=== PATIENT | female | born 1985 | race Caucasian/White ===

== ENCOUNTER 2016-11-12 16:40 | Inpatient (IN) | payer BC ==
[2016-11-12] MEDS ORDERED: diPHENhydraMINE IV* 50 MG/ML 1 ml VIAL (BENADRYL) ONE (16:55)
[2016-11-12] MEDS ORDERED: Haloperidol INJ IV/IM* 5 MG/ML AMP ONE (16:55)
[2016-11-12] MEDS ORDERED: LORazepam INJ* 2 MG/ML 1 ML VIAL ONE (16:55)
[2016-11-12] MEDS ORDERED: diPHENhydraMINE IV* 50 MG/ML 1 ml VIAL (BENADRYL) IM ONE (17:01)
[2016-11-12] MEDS ORDERED: LORazepam INJ* 2 MG/ML 1 ML VIAL IM ONE (17:01)
[2016-11-12] MEDS ORDERED: Haloperidol INJ IV/IM* 5 MG/ML AMP IM ONE (17:01)
[2016-11-12 18:52] LABS: Hematocrit 41 % (35-47); Hemoglobin 13.8 g/dl (12.0-16.0); Mean Corpuscular HGB Conc 34 g/dl (31-36); Mean Corpuscular Hemoglobin 31 pg (27-31); Mean Corpuscular Volume 92 fL (80-97); Mean Platelet Volume 8 um3 (7.4-10.4); Red Blood Count 4.48 10^6/ul (4.0-5.4); Red Cell Distribution Width 13 % (10.5-15); White Blood Count 9.6 10^3/ul (3.5-10.8)
[2016-11-12 19:14] LABS: ALT 12 U/L (7-52); AST 21 U/L (13-39); Albumin 4.2 g/dL (3.2-5.2); Alkaline Phosphatase 52 U/L (34-104); Anion Gap 6 mmol/L (2-11); BUN/Creatinine Ratio 17.7 (8-20); Blood Urea Nitrogen 11 mg/dL (6-24); CO2 Carbon Dioxide 27 mmol/L (22-32); Calcium 8.9 mg/dL (8.6-10.3); Chloride 104 mmol/L (101-111); EGFR African American 142.6 (>60); EGFR Non-African American 110.9 (>60); Globulin 2.5 g/dL (2-4); Glucose 81 mg/dL (70-100); Potassium 3.6 mmol/L (3.5-5.0); Sodium 137 mmol/L (133-145); Total Protein 6.7 g/dL (6.4-8.9)
[2016-11-12 19:24] LABS: Acetaminophen < 15 mcg/mL; Alcohol < 10 mg/dL (<10); Salicylate < 2.50 mg/dL (<30)
[2016-11-12 19:34] LABS: TSH (Thyroid Stimulating Horm) 5.83 mcIU/mL (0.34-5.60)
[2016-11-13] MEDS ORDERED: OLANzapine TAB* 5 MG PO ONE (03:45)
[2016-11-13] MEDS ORDERED: Al Hydrox/Mg Hydrox/Simet LIQ* 30 ML UDC PO PRN (04:23)
[2016-11-13] MEDS ORDERED: Acetaminophen TAB* 325 MG PO PRN (04:23)
[2016-11-13] MEDS: Vitamin THERAPEUTIC TAB PO SCH (10:00)
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
[2016-11-14] MEDS: Vitamin THERAPEUTIC TAB PO SCH (16:48)
--- NOTE | 2016-11-14 21:12 | PN ---
Subjective - Subjective Service Type: 82840 Hosp care 15 min low complexity Subjective: Patient noted to be withdrawn, staying primarily in her room this weekend. Patient is full in affect and pleasant on interview. Patient has not been noted to have behavioral issues. She denies SI/HI and AH/VH. Patient reports sleep as poor, reporting poor sleep maintenance. She is amenable to Trazodone 50mg po qhs for insomnia. Objective - Appearance Appearance: Well Developed/Nourished Dysmorphic Features: No Hygiene: Normal Grooming: Fairly Well Kept - Behavior Psychomotor Activities: Normal Exhibits Abnormal Movement: No - Attitude and Relatedness Attitude and Relatedness: Cooperative Eye Contact: Fair - Speech Quality: Unpressured Latencies: Normal Quantity: Terse - Mood Patient's Decription of Mood: "Okay" - Affect Observed Affect: Depressed Affect Consistent with: Dysphoria - Thought Process Patient's Thought Process: Coherent Thought Content: No Passive Wish, No Suicidal Planning, No Homicidal Ideation, No Paranoid Ideation - Sensorium Experiencing Hallucinations: No, Sensorium is Clear Type of Hallucinations: Visual: No, Auditory: No, Command: No - Level of Consciousness Level of Consciousness: Alert Orientation: Yes Intact, Yes Orientated to Time, Yes Orientated to Place, Yes Orientated to Person - Impulse Control Impulse Control: Poor - Insight and Judgement Insight and Judgement: Poor - Group Participation Particating in Group Activities: Yes - Medication Management Medication Management Adherence: Yes Assessment - Assessment Merits Inpatient Hospitalization: For Immediate Safety, For Stabilization Inpatient DSM-IV Dx: 1. Alcohol induced depressive d/o. 2. r/o Bipolar d/o. 3. Alcohol use d/o, severe. 4. Cannabis use d/o, severe Plan - Plan Treatment Plan: Name: VLAD ZAPIEN Birthdate: 1985 [id number] 1. Patient gives informed consent to start Trazodone 50mg po qhs for insomnia. 2. Patient informed she will meet her assigned psychiatrist tomorrow. Medications: Current Medications Acetaminophen (Tylenol Tab*) 650 mg PO Q4H PRN PRN Reason: PAIN or TEMP > 101 F Al Hydrox/Mg Hydrox/Simethicone (Maalox Plus*) 30 ml PO Q4H PRN PRN Reason: INDIGESTION Multivitamins (Theragran Tab*) 1 tab PO DAILY [facility] Last Admin: 11/14/16 16:48 Dose: Not Given - Discharge Plan Discharge Plan: Outpatient Follow Up
[2016-11-14] MEDS: traZODone TAB* 50 MG TAB PO SCH (22:55)
[2016-11-15] MEDS: Vitamin THERAPEUTIC TAB PO SCH (09:39)
--- NOTE | 2016-11-15 16:14 | PN ---
Subjective - Subjective Service Type: 19328 Hosp care 15 min low complexity Subjective: Patient is dysphoric and in behavioral control. She reports that events leading to admission were likely due to "being on a regalado" [alcohol binge] for the week prior. She states she is contemplating refraining from alcohol use and "experimenting with my natural state." She states that she has been losing weight due to access to food and does not like being underweight. She states she lost approx 30# since April due to cutting corners financially and not paying for food. She expresses anger towards her mother and brother for admission to hospital and would have preferred that they help her. She reports her sisters and father are supportive and she plans to ask him to help her in her current financial situation. 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 She denies SI and states "I don't believe in suicide" due to her yazidi mandaeism. Objective - Appearance Appearance: Thin Framed Dysmorphic Features: Yes Hygiene: Normal Grooming: Well Kept - Behavior Psychomotor Activities: Normal Exhibits Abnormal Movement: No - Attitude and Relatedness Attitude and Relatedness: Cooperative Eye Contact: Good - Speech Quality: Unpressured Latencies: Normal Quantity: Appropriate - Mood Patient's Decription of Mood: "Okay" - Affect Observed Affect: Non-labile Affect Consistent with: Dysphoria - Thought Process Patient's Thought Process: Coherent, Goal Directed Thought Content: No Passive Wish, No Suicidal Planning, No Homicidal Ideation, No Paranoid Ideation - Sensorium Experiencing Hallucinations: No, Sensorium is Clear Type of Hallucinations: Visual: No, Auditory: No, Command: No - Level of Consciousness Level of Consciousness: Alert Orientation: Yes Intact, Yes Orientated to Time, Yes Orientated to Place, Yes Orientated to Person - Impulse Control Impulse Control: Tenuous - Insight and Judgement Insight and Judgement: Fair - Group Participation Particating in Group Activities: Yes - Medication Management Medication Management Adherence: Yes Assessment - Assessment Merits Inpatient Hospitalization: For Immediate Safety, For Stabilization, For Discharge Planning Inpatient DSM-IV Dx: 1. Alcohol induced depressive d/o. 2. r/o Bipolar d/o. 3. Alcohol use d/o, severe. 4. Cannabis use d/o, severe Clinical Impression: Vlad is a 31yo female with current outpatient therapist. She reports recent psychosocial stressors and increase in alcohol and marijuana use. 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 Plan - Plan Treatment Plan: Name: VLAD ZAPIEN Birthdate: 1985 [id number] Medications: Current Medications Acetaminophen (Tylenol Tab*) 650 mg PO Q4H PRN PRN Reason: PAIN or TEMP > 101 F Al Hydrox/Mg Hydrox/Simethicone (Maalox Plus*) 30 ml PO Q4H PRN PRN Reason: INDIGESTION Multivitamins (Theragran Tab*) 1 tab PO DAILY [facility] Last Admin: 11/15/16 09:39 Dose: Not Given Trazodone HCl (Desyrel Tab*) 50 mg PO BEDTIME [facility] Last Admin: 11/14/16 22:55 Dose: 50 mg - Discharge Plan Discharge Plan: Outpatient Follow Up Outpatient Program: [facility]
[2016-11-15] MEDS: traZODone TAB* 50 MG TAB PO SCH (20:02)
[2016-11-16 08:53] LABS: Urine Bilirubin Negative (Negative); Urine Glucose Negative (Negative); Urine Nitrite Negative (Negative)
[2016-11-16 09:11] LABS: Benzodiazepine Urine Screen None Detected (None Detect)
[2016-11-16] MEDS: Vitamin THERAPEUTIC TAB PO SCH (09:31)
[2016-11-16] MEDS: Gabapentin CAP(*) 300 MG PO PRN ×2 (14:05→17:29)
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
[2016-11-16] MEDS: QUEtiapine TAB* 25 MG PO SCH (21:38)
[2016-11-17] MEDS: Vitamin THERAPEUTIC TAB PO SCH (09:26)
[2016-11-17] MEDS: Gabapentin CAP(*) 300 MG PO PRN ×2 (09:27→18:53)
--- NOTE | 2016-11-17 15:15 | PN ---
Subjective - Subjective Service Type: [id number] Hosp care 15 min low complexity Subjective: Patient reports "I feel a lot better" and attributes this to writing an email to her family. She states she was angry and expressed herself to her siblings, her father and his . She continues to assert that her family members have not been an active part of her life in the past year and that they do not know her very well. She continues to assert that her actions last week were due to an alcohol binge. She states she was intentional in most of her actions due to anger towards her family members. She states she has had the "best year of my life" and has been on a "long intentional journey." She states she has been trying to better herself through spirituality and yoga. She states "I stand behind my anger." She often refers to herself as a "brown supremacist" and that she is angry at the world. She denies and considers herself a non- violent protester. Patient denies untoward effects with quetiapine. She reports desired effect from gabapentin and appreciated not having a drowsy side effect. She agrees to have a family meeting to plan for discharge. She wants available family members to be present. Objective - Appearance Appearance: Thin Framed Dysmorphic Features: No Hygiene: Normal Grooming: Well Kept - Behavior Psychomotor Activities: Normal Exhibits Abnormal Movement: No - Attitude and Relatedness Attitude and Relatedness: Cooperative Eye Contact: Good - Speech Quality: Pressured Latencies: Normal Quantity: Copious - Mood Patient's Decription of Mood: "Angry" - Affect Observed Affect: Expansive Affect Consistent with: Euphoria - Thought Process Patient's Thought Process: Coherent, Circumstantial, Over Inclusive Thought Content: No Passive Wish, No Suicidal Planning, No Homicidal Ideation, No Paranoid Ideation - Sensorium Experiencing Hallucinations: No, Sensorium is Clear Type of Hallucinations: Visual: No, Auditory: No, Command: No - Level of Consciousness Level of Consciousness: Alert Orientation: Yes Intact, Yes Orientated to Time, Yes Orientated to Place, Yes Orientated to Person - Insight and Judgement Insight and Judgement: Fair - Group Participation Particating in Group Activities: Yes - Medication Management Medication Management Adherence: Yes Assessment - Assessment Merits Inpatient Hospitalization: For Immediate Safety, For Stabilization, Pending Safe DC Plan Inpatient DSM-IV Dx: 1. Alcohol induced depressive d/o. 2. r/o Bipolar d/o. 3. Alcohol use d/o, severe. 4. Cannabis use d/o, severe Clinical Impression: Vlad is a 31yo female with current outpatient therapist. She reports recent psychosocial stressors and increase in alcohol and marijuana use. 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 Collateral information from family members includes that she has been increasingly impulsive and exhibiting manic behaviors since the winter holidays. She merits hospitalization for immediate safety and ongoing diagnostic clarification. She submitted a request for court hearing when she was not deemed safe for discharge. She presents as calm initially then is hyperverbal and tense. She is easily agitated during conversation about family dynamics. Plan - Plan Treatment Plan: Name: VLAD ZAPIEN Birthdate: 1985 [id number] Continue trial quetiapine for mood stabilization and gabapentin prn for anxiety. Continue q30min checks and discontinue staff pass due to court request and risk for elopement. Use of computer on hold. Continued Medication Management: Different Medication Medications: Current Medications Acetaminophen (Tylenol Tab*) 650 mg PO Q4H PRN PRN Reason: PAIN or TEMP > 101 F Al Hydrox/Mg Hydrox/Simethicone (Maalox Plus*) 30 ml PO Q4H PRN PRN Reason: INDIGESTION Gabapentin (Neurontin Cap(*)) 300 mg PO BID PRN PRN Reason: AGITATION/ANXIETY Last Admin: 11/17/16 09:27 Dose: 300 mg Multivitamins (Theragran Tab*) 1 tab PO DAILY [facility] Last Admin: 11/17/16 09:26 Dose: 1 tab Quetiapine Fumarate (Seroquel Tab*) 50 mg PO BEDTIME [facility] Last Admin: 11/16/16 21:38 Dose: 50 mg - Discharge Plan Discharge Plan: Outpatient Follow Up Outpatient Program: [facility]
[2016-11-17] MEDS: QUEtiapine TAB* 25 MG PO SCH (21:35)
[2016-11-18] MEDS: Vitamin THERAPEUTIC TAB PO SCH (09:12)
[2016-11-18] MEDS: Gabapentin CAP(*) 300 MG PO PRN ×3 (10:37→18:25)
[2016-11-18] MEDS ORDERED: Gabapentin CAP(*) 300 MG PO SCH (14:00)
--- NOTE | 2016-11-18 14:44 | PN ---
Subjective - Subjective Service Type: 83311 Hosp care 25 min moderate complexity Subjective: Patient presents as dysphoric with restricted affect. She states she did not take quetiapine last evening as she was already in bed. She states she has decided to remain in the hospital because "my life is over." Patient states she doesn't want to discuss anything further because "anything I've shared is backfiring on me." She states she wants to now "be a part of the system" and be discharged to a homeless care home. During family meeting, patient is hyperverbal, agitated and verbally abusive to family members. She demonstrates poor insight into behaviors in the past year. Objective - Appearance Appearance: Thin Framed Dysmorphic Features: Yes Hygiene: Normal Grooming: Fairly Well Kept - Behavior Psychomotor Activities: Normal Exhibits Abnormal Movement: No - Attitude and Relatedness Attitude and Relatedness: Irritable Eye Contact: Fair - Speech Quality: Pressured Latencies: Normal Quantity: Copious - Mood Patient's Decription of Mood: "Angry" - Affect Observed Affect: Labile Affect Consistent with: Dysphoria - Thought Process Patient's Thought Process: Circumstantial Thought Content: No Passive Wish, No Suicidal Planning, No Homicidal Ideation, No Paranoid Ideation - Sensorium Experiencing Hallucinations: No, Sensorium is Clear Type of Hallucinations: Visual: No, Auditory: No, Command: No - Level of Consciousness Level of Consciousness: Alert Orientation: Yes Intact, Yes Orientated to Time, Yes Orientated to Place, Yes Orientated to Person - Impulse Control Impulse Control: Poor - Insight and Judgement Insight and Judgement: Poor - Group Participation Particating in Group Activities: No - Medication Management Medication Management Adherence: No Assessment - Assessment Merits Inpatient Hospitalization: For Immediate Safety, For Stabilization, For Ongoing Evaluation Inpatient DSM-IV Dx: 1. Alcohol induced depressive d/o. 2. unspecified Bipolar d/o. 3. Alcohol use d/o, severe. 4. Cannabis use d/o, severe Clinical Impression: Vlad is a 31yo female with current outpatient therapist. She reports recent psychosocial stressors and increase in alcohol and marijuana use. 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 Collateral information from family members includes that she has been increasingly impulsive and exhibiting manic behaviors since the winter holidays. She merits hospitalization for immediate safety and ongoing diagnostic clarification. She submitted a request for court hearing when she was not deemed safe for discharge. Family meeting today corroborated decrease in functioning and uncharacteristic behaviors. Patient presented as manic. Plan - Plan Treatment Plan: Name: VLAD ZAPIEN Birthdate: 1985 [id number] Start titration of lamotrigine for mood stabilization. Continue trial quetiapine for mood stabilization and gabapentin prn for anxiety. Continue q30min checks and discontinue staff pass due to court request and risk for elopement. Use of computer on hold. Continued Medication Management: Different Medication Medications: Current Medications Acetaminophen (Tylenol Tab*) 650 mg PO Q4H PRN PRN Reason: PAIN or TEMP > 101 F Al Hydrox/Mg Hydrox/Simethicone (Maalox Plus*) 30 ml PO Q4H PRN PRN Reason: INDIGESTION Gabapentin (Neurontin Cap(*)) 300 mg PO TID PRN PRN Reason: AGITATION/ANXIETY Multivitamins (Theragran Tab*) 1 tab PO DAILY [facility] Last Admin: 11/18/16 09:12 Dose: Not Given Quetiapine Fumarate (Seroquel Tab*) 50 mg PO BEDTIME [facility] Last Admin: 11/17/16 21:35 Dose: Not Given - Discharge Plan Discharge Plan: Outpatient Follow Up Outpatient Program: [facility]
--- NOTE | 2016-11-18 15:55 | PN ---
MHU: Group Therapy Note - Service Type Service Type: [id number] Group Psychotherapy - Group Participation Patient Participating in Group: No
[2016-11-18] MEDS: lamoTRIgine TAB(*) 25 MG PO SCH (21:50)
[2016-11-18] MEDS: QUEtiapine TAB* 25 MG PO SCH (21:50)
[2016-11-19] MEDS: Gabapentin CAP(*) 300 MG PO PRN ×2 (09:42→20:14)
[2016-11-19] MEDS: Vitamin THERAPEUTIC TAB PO SCH (09:42)
--- NOTE | 2016-11-19 12:27 | PN ---
Subjective - Subjective Service Type: [id number] Hosp care 15 min low complexity Subjective: Patient is calm and euthymic. She states she is planning to rescind her court request and stay in the hospital. States she wants to "let you guys diagnose me " without medications or family involvement. Patient reports her presentation since admission is due to anger towards her family members for admission to the hospital. She states she would like to utilize hospitalization to "have a retreat" and assistance with healthcare social worker in regards to housing and employment. [employer] notified her that her family brought her car to the parking lot and her keys, cell phone and belongings are in the unit safe. Objective - Appearance Appearance: Thin Framed Dysmorphic Features: No Hygiene: Normal Grooming: Well Kept - Behavior Psychomotor Activities: Normal Exhibits Abnormal Movement: No - Attitude and Relatedness Attitude and Relatedness: Cooperative Eye Contact: Good - Speech Quality: Unpressured Latencies: Normal Quantity: Appropriate - Mood Patient's Decription of Mood: "Good" - Affect Observed Affect: Good Affect Consistent with: Euthymia - Thought Process Patient's Thought Process: Coherent, Incoherent Thought Content: No Passive Wish, No Suicidal Planning, No Homicidal Ideation, No Paranoid Ideation - Sensorium Experiencing Hallucinations: No, Sensorium is Clear Type of Hallucinations: Visual: No, Auditory: No, Command: No - Level of Consciousness Level of Consciousness: Alert Orientation: Yes Intact, Yes Orientated to Time, Yes Orientated to Place, Yes Orientated to Person - Impulse Control Impulse Control: Intact - Insight and Judgement Insight and Judgement: Fair - Group Participation Particating in Group Activities: Yes - Medication Management Medication Management Adherence: Partial - refuses seroquel and lamotrigine Assessment - Assessment Merits Inpatient Hospitalization: For Immediate Safety, For Stabilization, Diagnosis Determination, Pending Safe DC Plan Inpatient DSM-IV Dx: 1. Alcohol induced depressive d/o. 2. unspecified Bipolar d/o. 3. Alcohol use d/o, severe. 4. Cannabis use d/o, severe Clinical Impression: Rosario is a 31yo female with current outpatient therapist. She reports recent psychosocial stressors and increase in alcohol and marijuana use. 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 Collateral information from family members includes that she has been increasingly impulsive and exhibiting manic behaviors since the winter hols. She merits hospitalization for immediate safety and ongoing diagnostic clarification. She submitted a request for court hearing when she was not deemed safe for discharge. Patient rescinded request for court hearing and [place]EL for her sister, Lesli. She states agreement to continue with diagnostic clarification and would like to do so without medications or family involvement. Plan - Plan Treatment Plan: Name: ROSARIO ZAPIEN Birthdate: 1985 [id number] Start titration of lamotrigine for mood stabilization. Continue trial quetiapine for mood stabilization and gabapentin prn for anxiety. Continue q30min checks. Reinstate staff pass due to rescinding court request and reinstate computer and comfort room use. Monitor for mood and thought content. Continued Medication Management: Different Medication Medications: Current Medications Acetaminophen (Tylenol Tab*) 650 mg PO Q4H PRN PRN Reason: PAIN or TEMP > 101 F Al Hydrox/Mg Hydrox/Simethicone (Maalox Plus*) 30 ml PO Q4H PRN PRN Reason: INDIGESTION Gabapentin (Neurontin Cap(*)) 300 mg PO TID PRN PRN Reason: AGITATION/ANXIETY Last Admin: 11/19/16 09:42 Dose: 300 mg Lamotrigine (Lamictal Tab(*)) 25 mg PO BEDTIME [facility] Last Admin: 11/18/16 21:50 Dose: 25 mg Multivitamins (Theragran Tab*) 1 tab PO DAILY [facility] Last Admin: 11/19/16 09:42 Dose: 1 tab Quetiapine Fumarate (Seroquel Tab*) 50 mg PO BEDTIME [facility] Last Admin: 11/18/16 21:50 Dose: 50 mg - Discharge Plan Discharge Plan: Outpatient Follow Up Out[facility] Program: [facility]
[2016-11-19] MEDS: lamoTRIgine TAB(*) 25 MG PO SCH (20:13)
[2016-11-19] MEDS: QUEtiapine TAB* 25 MG PO SCH (20:13)
[2016-11-20] MEDS: Gabapentin CAP(*) 300 MG PO PRN ×2 (09:10→20:42)
[2016-11-20] MEDS: Vitamin THERAPEUTIC TAB PO SCH (09:11)
[2016-11-20] MEDS: QUEtiapine TAB* 25 MG PO SCH (20:43)
[2016-11-20] MEDS: lamoTRIgine TAB(*) 25 MG PO SCH (20:43)
[2016-11-21] MEDS: Vitamin THERAPEUTIC TAB PO SCH (09:29)
[2016-11-21] MEDS: Gabapentin CAP(*) 300 MG PO PRN ×3 (09:29→20:44)
[2016-11-21] MEDS: lamoTRIgine TAB(*) 25 MG PO SCH (20:52)
[2016-11-21] MEDS: QUEtiapine TAB* 25 MG PO SCH (20:53)
[2016-11-22] MEDS: Vitamin THERAPEUTIC TAB PO SCH (09:23)
[2016-11-22] MEDS: Gabapentin CAP(*) 300 MG PO PRN (09:24)
--- NOTE | 2016-11-22 11:28 | PN ---
Subjective - Subjective Subjective: Patient is finishing a yoga routine in her room. She is pleasant and cooperative. She reports having a good weekend and liked the anger management group. She states that she is not "sorry" for events leading to admission but wishes she would have talked to particular people in her life beforehand. Patient reports increased anxiety about finding housing and employment. She endorses insight that not smoking marijuana is a factor. She states she spoke to the [facility] director regulatory affairs and plans to return to her housing this month. She is ready to use the court system if necessary. She denies SI/. Objective - Appearance Appearance: Thin Framed Dysmorphic Features: No Hygiene: Normal Grooming: Well Kept - Behavior Psychomotor Activities: Normal Exhibits Abnormal Movement: No - Attitude and Relatedness Attitude and Relatedness: Cooperative Eye Contact: Good - Speech Quality: Unpressured Latencies: Normal Quantity: Appropriate - Mood Patient's Decription of Mood: "Good" - Affect Observed Affect: Good Affect Consistent with: Euthymia - Thought Process Patient's Thought Process: Coherent, Goal Directed Thought Content: No Passive Wish, No Suicidal Planning, No Homicidal Ideation, No Paranoid Ideation - Sensorium Experiencing Hallucinations: No, Sensorium is Clear Type of Hallucinations: Visual: No, Auditory: No, Command: No - Level of Consciousness Level of Consciousness: Alert Orientation: Yes Intact, Yes Orientated to Time, Yes Orientated to Place, Yes Orientated to Person - Impulse Control Impulse Control: Intact - Insight and Judgement Insight and Judgement: Fair - Group Participation Particating in Group Activities: Yes - Medication Management Medication Management Adherence: Partial Assessment - Assessment Merits Inpatient Hospitalization: For Stabilization, For Discharge Planning Inpatient DSM-IV Dx: 1. Alcohol induced depressive d/o. 2. unspecified Bipolar d/o. 3. Alcohol use d/o, severe. 4. Cannabis use d/o, severe Clinical Impression: Vlad is a 31yo female with current outpatient therapist. She reports recent psychosocial stressors and increase in alcohol and marijuana use. 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 Collateral information from family members includes that she has been increasingly impulsive and exhibiting manic behaviors since the winter holidays. She rebuts this information and states she is angry at her family and society for current political climate. She continues to assert that she would like to be assessed by the treatment team without medications or family involvement. Plan - Plan Treatment Plan: Name: VLAD ZAPIEN Birthdate: 1985 [id number] Patient is refusing quetiapine and lamotrigine. Will increase use of gabapentin for mood stabilization and prn for anxiety. Continue q30min checks. Reinstate staff pass due to rescinding court request and reinstate computer and comfort room use. Monitor for mood and thought content. Continued Medication Management: Different Medication Medications: Current Medications Acetaminophen (Tylenol Tab*) 650 mg PO Q4H PRN PRN Reason: PAIN or TEMP > 101 F Al Hydrox/Mg Hydrox/Simethicone (Maalox Plus*) 30 ml PO Q4H PRN PRN Reason: INDIGESTION Gabapentin (Neurontin Cap(*)) 300 mg PO 4x day PRN PRN Reason: AGITATION/ANXIETY Last Admin: 11/22/16 09:24 Dose: 300 mg Lamotrigine (Lamictal Tab(*)) 25 mg PO BEDTIME [facility] Last Admin: 11/21/16 20:52 Dose: Not Given Multivitamins (Theragran Tab*) 1 tab PO DAILY [facility] Last Admin: 11/22/16 09:23 Dose: 1 tab Quetiapine Fumarate (Seroquel Tab*) 50 mg PO BEDTIME [facility] Last Admin: 11/21/16 20:53 Dose: Not Given - Discharge Plan Discharge Plan: Outpatient Follow Up [facility]: [facility]
[2016-11-22] MEDS: Gabapentin CAP(*) 300 MG PO SCH ×3 (13:03→20:07)
[2016-11-22] MEDS: QUEtiapine TAB* 25 MG PO SCH (20:08)
[2016-11-22] MEDS: lamoTRIgine TAB(*) 25 MG PO SCH (20:08)
[2016-11-23 08:13] VITALS: BP 101/67
[2016-11-23] MEDS: Gabapentin CAP(*) 300 MG PO SCH ×2 (09:14→12:38)
[2016-11-23] MEDS: Vitamin THERAPEUTIC TAB PO SCH (09:14)
--- NOTE | 2016-11-23 11:26 | PN ---
MHU: Group Therapy Note - Service Type Service Type: [id number] Group Psychotherapy - Cognitive Behavioral Group Therapy ( CBT):Patient was attentive and participatory in CBT programming this morning, and remained in good behavioral control. Patient expressed positive insights regarding relevant treatment interventions and goals.
--- NOTE | 2016-11-23 16:57 | DS ---
CC: [facility], Dr. Wiggins and therapist Jeanna* DATE OF ADMISSION: 11/13/2016. DATE OF DISCHARGE: 11/23/2016. SUPERVISING PSYCHIATRIST: Dr. Maksim Arguelles* (dictated by HELEN Neff) . DISCHARGE DIAGNOSES: AXIS I: Unspecified episodic mood disorder; rule out bipolar disorder; alcohol use disorder; cannabis use disorder. AXIS II: Consider borderline personality traits. AXIS III: No active medical problem. AXIS IV: Stressors related to financial strain, interpersonal relationships, employment, tenuous housing. AXIS V: 65. CONDITION AT TIME OF DISCHARGE: Improved. The patient is calm and in behavioral control. She reports readiness for discharge. She is looking forward to following up with her outpatient providers. She states she is going to utilize her friendships and legal services, if necessary, in order to return to her apartment today. She denies HI or . She reports intent to remain calm and states understanding to use as needed medication to do so. Rosario continues to deny desire to interact with family members. She states that she would like to continue "her life without her family members." She states that they have not been helpful. She denies suicidal ideation and thoughts of self- harm. She denies body image issues. She reports adequate sleep and appetite. MENTAL STATUS EXAM: The patient is a thin-framed, well-groomed female wearing her own clothing and appears stated age. She is calm, sits upright, and no psychomotor activity abnormality noted. She is cooperative and pleasant. She is interactive with staff and peers. She is alert and oriented times three. Her concentration is good. Her memory is 3/3. Her mood is "good." Her affect is full. Speech is soft and articulate. Her thought process is logical, goal- directed and coherent. Thought content is negative for obsessions, AH, VH, SI or HI. Her insight is fair, judgment is good, fund of knowledge is excellent. INSTRUCTIONS GIVEN TO THE PATIENT: Only medication at this time is Gabapentin 300 mg. She was instructed to take one in the morning and one at bedtime and may have two additional doses prn anxiety or agitation. This medication was e- scripted to [facility] in [place]. Diet is regular. Activity is ambulation as tolerated. Tobacco cessation is not applicable. There are no pending labs or diagnostic studies at the time of discharge. HOSPITAL COURSE: A. Reason for admission: The patient was brought in by police on 945 status due bizarre behavior. She gave inconsistent statements to collateral given by her family members. B. Psychiatric treatment rendered: The patient was admitted to Behavioral Services Unit on 939 status. She was placed on 15 minute checks. Her code status was full. She was encouraged to participate in comprehensive milieu, individual and group psychotherapy. She was placed on WA protocol to assess for alcohol withdrawal symptoms. She did not score on the WAM and this was discontinued. She completed an MMPI which noted slight elevation in hypomania. The patient reported that all of this was in relation to a recent alcohol "regalado" where she had been drinking heavily for a week prior to admission. 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 While on the unit, she presented calm and in behavioral control. Much collateral was received from family members in regards to their concern for her change in behavior over the past year. There was much concern about underlying bipolar disorder and her inability to have good insight and care for herself. While on the unit, there was a family meeting with functional tester typewriters and automatic data processing planner. The patient was agitated, intrusive and verbally aggressive. After the meeting, she revoked all releases of information and reported her intent was to have staff monitor her and evaluate her without the influence of medications or family members. Throughout this stay , she asserted that she was "angry" because of various social issues. She stated that she was not apologetic for her outburst towards her family members while on the unit and her outburst leading to admission towards her landlady and the police. She identified that she was not appropriate in her interactions and reported gaining much insight from groups, specifically anger management group, while on the unit. Rosario declined offer of mood stabilizers, such as Quetiapine or Lamotrigine. She accepted Gabapentin for anxiety, agitation and off-label use for mood stabilization. She identified that she has been smoking much marijuana lately and that this was likely a cause for irritation and anxiety, having not had this substance since being admitted. Rosario agreed to follow-up with her [facility] outpatient providers [facility], Dr. Wiggins and therapist Jeanna. Since the day after the family meeting, she has been calm and in behavioral control. She has been interactive with staff and peers, pleasant and cooperative during psychiatric interview. She continues to deny SI, HI, , or SIB urges. She is thin-framed ; she reports that this was due to lack of access to food due to financial strain. She denies eating disorder behaviors or body image issues. She will be follow-up with Jeanna this week and Dr. Wiggins next week. She states a plan to go back to her apartment and identify how long she can be there and plans to utilize legal services if necessary. She states that her friend, Jenn, is going to come with her and she reports goal to remain calm resolve all of the problems in a civil manner. Rosario has been safe on all checks. She has been decreased to q.30 minute observation. She has participated on staff pass and engaged in computer use for discharge planning. She states understanding of diagnostic clarification still in progress. She is encouraged to refrain from alcohol and substance use to help identify any underlying psychiatric disorders. TARAS CAREY NP [id number]/CPS #: [id number] LALITA
--- NOTE | 2016-11-23 19:51 | CONS ---
PSYCHOLOGICAL REPORT: DATE OF CONSULT: 11/22/16 REASON FOR REFERRAL: Rosario was referred for psychological testing secondary to concerns regarding possible geovany and/or psychosis. TEST ADMINISTERED: Rosario completed the [place] Multiphasic Personality Inventory- 2 (MMPI-2). She was given feedback in individual conversation regarding testing results. RELEVANT HISTORY: Rosario was brought to this facility for evaluation after a family confrontation which led to a police call. Apparently, Rosario's 26-year- old brother broke into her house to check up on her for the second time in consecutive days, which led to an escalating confrontation that eventually led to the police taking Rosario in for psychiatric evaluation against her will. Rosario describes increasing family conflict in recent months with family being quite adamant about retaining Rosario at this facility for continuing evaluation, citing increasing difficulties with impulsive and erratic behaviors since last winter. 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 She describes using alcohol and marijuana daily and acknowledges that this has become increasingly problematic in recent weeks especially. Rosario has a bachelor's in history from [employer] and also has pursued some graduate courses in public administration. Rosario spontaneously describes an interest in finding other vocational interests, but does not wish to pursue public administration as a career choice presently. She has remained steadfast in her interest in finding alternative employment in healthier environments. Also, of concern is her landlord has attempted to evict her, with Rosario having had legal contact with mental health legal advice and is deciding to remain in her current situation until she is able to find suitable housing otherwise. BEHAVIORAL OBSERVATIONS: Rosario is a 31-year-old female, who initially dismissed of clinical efforts to treat and evaluate. She initially was adamant about being discharged and was every externalized on blaming family members for her current situation. She describes struggling financially despite having employment in 3 different establishments, citing how she had ran out of money for food and was struggling to adapt to her current circumstances. She impressed as having positive insights regarding negative effects of alcohol and marijuana use, have had in the recent weeks especially, and is seeking help in regards to continuing mental health treatment at this point in time. Currently , her mood is euthymic and discussion is coherent and relevant. She was able to utilize her hospitalization here in a productive fashion in the end, citing how she needed to have a break from what she continues to feel are intrusive family members. Currently, she expressive positive goals consistent with the insight that sobriety and bartending in 3 different places is contradictory. TEST RESULTS: Rosario provides a valid protocol on this administration of the MMPI -2 despite an elevated situational stressor scale (F=90). She also describes low emotional coping and self-esteem scoring. Clinical scales reflect an elevation occurring on the hypomania scale (T=87), with lower scores describing a sense of alienation and feeling alone and without supports in regards to interpersonal relationships currently. Of note, she scores quite low on the depression scale (T=37). Clinical concerns revolve around possible manic episode. This should be ruled out in continuing outpatient therapies as her current presentation is complicated secondary to alcohol and substance abuse issues. In fact, these impress as primary etiology of her current emotional dysfunction, but continued efforts should consider possible "tatiana totter effect" in regards to the very low score on the depression scale as well as the elevated hypomania scale, meaning that as hypomania comes down depression may come up. Historically relevant history sounds as if she has had experienced some depressive episodes, but this is rather unclear currently as Rosario is denying such symptomatology. Ongoing treatment considerations will have to assess family dynamics. Currently , Rosario appears to be establishing rather firm boundaries in that she remains very angry at family members for what she feels are intrusive in efforts to address her wellbeing. Regardless, ongoing therapies should be supportive in nature in regards to recovery and establishment and maintenance of sobriety as well as providing other functional supports in regards to access to reasonable housing and food security. DIAGNOSTIC IMPRESSION: Supports mood-induced disorder secondary to alcohol and marijuana use with continuing rule out of possible bipolar I condition. [id number]/[facility] #: [id number] LALITA
== END 2016-11-23 15:00 | disposition home or self-care (01) | DRG 753 ==
LOC: ED 16:40 → BSU 11-13 04:28
PROVIDERS: ADMIT Psychiatry & Neurology Psychiatry; ATTEND Psychiatry & Neurology Psychiatry
PROC: GZHZZZZ Group Psychotherapy (ICD-10-PCS; principal; 2016-11-13)
DX: F31.9 Bipolar disorder, unspecified (principal); F10.94 Alcohol use, unspecified with alcohol-induced mood disorder; F12.90 Cannabis use, unspecified, uncomplicated; Z88.8 Allergy status to other drugs, medicaments and biological substances; Z81.8 Family history of other mental and behavioral disorders; Y90.9 Presence of alcohol in blood, level not specified; F41.9 Anxiety disorder, unspecified
CPT/HCPCS: 36415; 80053; 80307; 80320; 80329; 81003; 84443; 85025; 90853; 99222; 99231; 99232; 99238; A9270-GY; G0480; J1200; J1630; J2060

== ENCOUNTER 2016-11-27 18:20 | Inpatient (IN) | payer BC ==
[2016-11-27 19:47] LABS: Hematocrit 39 % (35-47); Hemoglobin 13.4 g/dl (12.0-16.0); Mean Corpuscular HGB Conc 34 g/dl (31-36); Mean Corpuscular Hemoglobin 30 pg (27-31); Mean Corpuscular Volume 89 fL (80-97); Mean Platelet Volume 8 um3 (7.4-10.4); Red Blood Count 4.42 10^6/ul (4.0-5.4); Red Cell Distribution Width 13 % (10.5-15); White Blood Count 14.1 10^3/ul (3.5-10.8)
[2016-11-27 19:59] LABS: ALT 20 U/L (7-52); AST 25 U/L (13-39); Albumin 4.4 g/dL (3.2-5.2); Alkaline Phosphatase 54 U/L (34-104); Anion Gap 8 mmol/L (2-11); Blood Urea Nitrogen 17 mg/dL (6-24); CO2 Carbon Dioxide 23 mmol/L (22-32); Calcium 9.6 mg/dL (8.6-10.3); Chloride 104 mmol/L (101-111); EGFR African American 128.2 (>60); EGFR Non-African American 99.6 (>60); Globulin 2.7 g/dL (2-4); Glucose 111 mg/dL (70-100); Potassium 3.5 mmol/L (3.5-5.0); Sodium 135 mmol/L (133-145); Total Protein 7.1 g/dL (6.4-8.9)
[2016-11-27 20:16] LABS: Acetaminophen < 15 mcg/mL; Alcohol < 10 mg/dL (<10); Salicylate < 2.50 mg/dL (<30)
[2016-11-27 20:25] LABS: TSH (Thyroid Stimulating Horm) 2.28 mcIU/mL (0.34-5.60)
--- NOTE | 2016-11-27 21:40 | ED ---
Yris Cain Edward, scribed for Yaniv Odom on 11/27/16 at 1834 . Psychiatric Complaint - HPI Summary HPI Summary: 31 y/o female brought in by police to the ED. Per police, they were called by her landlord after parading around naked and yelling abusively to passerbys starting at 11:00 this morning. 2 weeks ago the pt was admitted for similar symptoms. Today she also made comments indicating she would harm any officer who approaches her. Lives alone. Last seen normal 1 month ago, per police. No PMHx mental issues. Drug use positive. EtOH use positive. Information provided by the police. - History Of Current Complaint Chief Complaint: EDMentalHealth Hx Obtained From: Patient Onset/Duration: Lasting Hours Character: Manic Associated Signs And Symptoms: Positive: Hostile Has Suicidal: Denies: Thoughts - Allergies/Home Medications Allergies/Adverse Reactions: Allergies Allergy/AdvReac Type Severity Reaction Status Date / Time Tramadol Allergy Rash Verified 12/11/14 09:02 PMH/Surg Hx/FS Hx/Imm Hx Previously Healthy: No Endocrine/Hematology History: Denies: Hx Bone Marrow Disease, Hx Diabetes, Hx Thyroid Disease, Hx Anemia Cardiovascular History: Denies: Hx Pacemaker/ICD Respiratory History: Denies: Hx Asthma, Hx Sleep Apnea GI History: Denies: Hx Crohn's Disease, Hx Gastroesophageal Reflux Disease, Hx Irritable Bowel History: Denies: Hx Kidney Infection, Hx Kidney Stones Musculoskeletal History: Denies: Hx Arthritis, Hx Bursitis, Hx Tendonitis Sensory History: Denies: Hx Contacts or Glasses, Hx Glaucoma, Hx Hearing Aid Opthamlomology History: Denies: Hx Contacts or Glasses, Hx Glaucoma Neurological History: Denies: Hx Headaches, Hx Migraine, Hx Seizures Psychiatric History: Reports: Hx Eating Disorder - Pt restricts food, Hx Depression Denies: Hx Anxiety - Surgical History Surgery Procedure, Year, and Place: [place] tooth extraction - Family History Known Family History: Positive: Other - Alcoholism - Social History Lives: Alone Alcohol Use: Weekly Alcohol Amount: 'Binge drinks" Hx Substance Use: Yes Substance Use Type: Reports: Marijuana Substance Use Comment - Amount & Last Used: unknown pt not cooperative at this time. Hx Tobacco Use: No Smoking Status (MU): Never Smoked Tobacco Amount Used/How Often: Pt has not used any tobacco products in last 30 days Review of Systems Constitutional: Negative Eyes: Negative ENT: Negative Cardiovascular: Negative Respiratory: Negative Gastrointestinal: Negative Genitourinary: Negative Musculoskeletal: Negative Skin: Negative Neurological: Negative Psychological: Other - Hostile, per police All Other Systems Reviewed And Are Negative: Yes Physical Exam Triage Information Reviewed: Yes Vital Signs Reviewed: Yes Appearance: Positive: Well-Appearing, No Pain Distress Skin: Positive: Warm, Skin Color Reflects Adequate Perfusion, Dry Head/Face: Positive: Normal Head/Face Inspection Eyes: Positive: EOMI, MARCIN ENT: Positive: Normal ENT inspection Neck: Positive: Supple, Nontender Respiratory/Lung Sounds: Positive: Clear to Auscultation, Breath Sounds Present Cardiovascular: Positive: RRR, Pulses are Symmetrical in both Upper and Lower Extremities Abdomen Description: Positive: Nontender, Soft Bowel Sounds: Positive: Present Musculoskeletal: Positive: Normal, Strength/ROM Intact Neurological: Positive: Normal, Sensory/Motor Intact, Alert, Oriented to Person Place, Time Psychiatric: Positive: Normal, Affect/Mood Appropriate Diagnostics - Laboratory Result Diagrams: 11/27/16 19:32 11/27/16 19:32 Lab Statement: Any lab studies that have been ordered have been reviewed, and results considered in the medical decision making process. Course/Dx - Course Assessment/Plan: 31 y/o female brought in by police to the ED. Per police, they were called by her landlord after parading around naked and yelling abusively to passerbys starting at 11:00 this morning. 2 weeks ago the pt was admitted for similar symptoms. Today she also made comments indicating she would harm any officer who approaches her. Lives alone. Last seen normal 1 month ago, per police. No PMHx mental issues. Drug use positive. EtOH use positive. Information provided by the police. Pt is medically cleared for MHU eval @ 21: 27. Pt will be signed out to Dr. Odom at shift change pending MHU eval. - Differential Dx/Clinical Impression Provider Diagnosis: Acute psychosis Discharge - Discharge Plan Condition: Stable Disposition: OTHER Discharge Disposition Comment: Pt will be signed out to Dr. Odom at shift change pending MHU eval. Referrals: Gwen Valenzuela MD [Primary Care Provider] - The documentation as recorded by the Yris fleming Edward accurately reflects the service I personally performed and the decisions made by , Yaniv Odom.
[2016-11-28] MEDS ORDERED: Acetaminophen TAB* 325 MG ONE (00:50)
[2016-11-28] MEDS: Acetaminophen TAB* 325 MG PO PRN (00:52)
[2016-11-28] MEDS ORDERED: Al Hydrox/Mg Hydrox/Simet LIQ* 30 ML UDC PO PRN (01:06)
[2016-11-28] MEDS ORDERED: QUEtiapine TAB* 25 MG PO ONE (01:20)
[2016-11-28] MEDS ORDERED: QUEtiapine TAB* 25 MG ONE (01:40)
[2016-11-28 06:56] LABS: Urine Bacteria 1+ (Absent); Urine Bilirubin Negative (Negative); Urine Glucose Negative (Negative); Urine Nitrite Negative (Negative)
[2016-11-28 07:29] LABS: Benzodiazepine Urine Screen None Detected (None Detect)
[2016-11-28] MEDS: Gabapentin CAP(*) 300 MG PO SCH ×2 (10:35→20:43)
[2016-11-28] MEDS: Vitamin THERAPEUTIC TAB PO SCH (10:36)
[2016-11-28] MEDS ORDERED: Haloperidol TAB* 5 MG PO PRN (12:30)
[2016-11-28] MEDS ORDERED: LORazepam TAB(*) 1 MG ONE (16:53)
[2016-11-28] MEDS ORDERED: LORazepam INJ* 2 MG/ML 1 ML VIAL ONE (16:57)
[2016-11-28] MEDS ORDERED: Haloperidol INJ IV/IM* 5 MG/ML AMP ONE (17:01)
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
[2016-11-29] MEDS: Vitamin THERAPEUTIC TAB PO SCH (10:18)
[2016-11-29] MEDS: Gabapentin CAP(*) 300 MG PO SCH ×2 (10:18→20:59)
--- NOTE | 2016-11-29 16:09 | PN ---
Subjective - Subjective Subjective: Patient is seclusive to room, pleasant upon approach. She discounts events leading to admission and blames her family for being intrusive. She reports not taking gabapentin as she did not notice an effect. She is opposed to haloperidol but agreeable to quetiapine as this was discussed in her previous admission. She declines [facility] for staff contact with her family members. She reports wanting to utilize hospital admission for sleep and to pursue employment and housing. Objective - Appearance Appearance: Thin Framed Dysmorphic Features: No Hygiene: Dirty Grooming: Disheveled - Behavior Psychomotor Activities: Normal Exhibits Abnormal Movement: No - Attitude and Relatedness Attitude and Relatedness: Superficially Cooperative Eye Contact: Good - Speech Quality: Unpressured Latencies: Normal Quantity: Appropriate - Mood Patient's Decription of Mood: "Fine" - Affect Observed Affect: Good Affect Consistent with: Euthymia - Thought Process Patient's Thought Process: Coherent, Goal Directed Thought Content: No Passive Wish, No Suicidal Planning, No Homicidal Ideation, No Paranoid Ideation - Sensorium Experiencing Hallucinations: No, Sensorium is Clear Type of Hallucinations: Visual: No, Auditory: No, Command: No - Level of Consciousness Level of Consciousness: Alert Orientation: Yes Intact, Yes Orientated to Time, Yes Orientated to Place, Yes Orientated to Person - Impulse Control Impulse Control: Tenuous - Insight and Judgement Insight and Judgement: Poor - Group Participation Particating in Group Activities: No - Medication Management Medication Management Adherence: No Assessment - Assessment Merits Inpatient Hospitalization: For Immediate Safety, For Stabilization, Pending Safe DC Plan Inpatient DSM-IV Dx: I: unspecified bipolar d/o; cannabis use d/o. II: consider borderline personality d/o. III: no active medical problem. IV: severe stressors r/t interpersonal relationships, housing, employment. V: 45 Clinical Impression: Vlad is a 31yo female who returns to the ED after discharge from [facility] last week. She was disorganized in the community and asking police to "shoot her." She has poor insight and likely fabricates justifications for her behavior. She merits hospitalization for immediate safety and stabilization. Plan - Plan Treatment Plan: Name: VLAD ZAPIEN Birthdate: 1985 [id number] Trial quetiapine XR 50mg qhs for mood stabilization, continue gabapentin. Encourage therapeutic milieu, individual and group psychoeducation. She is encouraged to allow staff contact with trusted individuals for collateral information. Continue q15 min checks for safety. Will monitor for mood and thought content. Will consider state hospitalization if no improvements. Continued Medication Management: Different Medication Medications: Current Medications Acetaminophen (Tylenol Tab*) 650 mg PO Q4H PRN PRN Reason: PAIN or TEMP > 101 F Last Admin: 11/28/16 00:52 Dose: 650 mg Al Hydrox/Mg Hydrox/Simethicone (Maalox Plus*) 30 ml PO Q4H PRN PRN Reason: INDIGESTION Gabapentin (Neurontin Cap(*)) 300 mg PO BID [facility] Last Admin: 11/29/16 10:18 Dose: Not Given Haloperidol (Haldol Tab*) 5 mg PO Q6H PRN PRN Reason: AGITATION/ANXIETY/INSOMNIA Lorazepam (Ativan Tab(*)) 1 mg PO BID PRN PRN Reason: ANXIETY/AGITATION Multivitamins (Theragran Tab*) 1 tab PO DAILY [facility] Last Admin: 11/29/16 10:18 Dose: Not Given Quetiapine Fumarate (Seroquel Xr Tab*) 50 mg PO BEDTIME [facility] - Discharge Plan Discharge Plan: Consider Longer Term Tx Outpatient Program: [facility]
[2016-11-29] MEDS ORDERED: QUEtiapine XR TAB* 50 MG PO SCH (21:00)
[2016-11-30] MEDS: Vitamin THERAPEUTIC TAB PO SCH (09:46)
[2016-11-30] MEDS: Gabapentin CAP(*) 300 MG PO SCH (09:46)
--- NOTE | 2016-11-30 13:07 | PN ---
MHU: Group Therapy Note - Service Type Service Type: [id number] Group Psychotherapy - Cognitive Behavioral Group Therapy ( CBT):Patient was attentive and participatory in CBT programming this morning, and remained in good behavioral control. Patient expressed positive insights regarding relevant treatment interventions and goals.
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
[2016-11-30] MEDS: Divalproex ER TAB(*) 500 MG PO SCH (21:37)
[2016-11-30] MEDS: Paliperidone TAB* 3 MG TAB PO SCH (21:37)
[2016-12-01] MEDS: Vitamin THERAPEUTIC TAB PO SCH (09:59)
--- NOTE | 2016-12-01 11:41 | PN ---
MHU: Group Therapy Note - Service Type Service Type: [id number] Group Psychotherapy - Cognitive Behavioral Group Therapy ( CBT):Patient was attentive and participatory in CBT programming this morning, and remained in good behavioral control. Patient expressed positive insights regarding relevant treatment interventions and goals.
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
[2016-12-01] MEDS: Divalproex ER TAB(*) 500 MG PO SCH (20:37)
[2016-12-01] MEDS: Paliperidone TAB* 3 MG TAB PO SCH (20:37)
[2016-12-02] MEDS: Vitamin THERAPEUTIC TAB PO SCH (09:16)
--- NOTE | 2016-12-02 14:29 | PN ---
Subjective - Subjective Service Type: [id number] Hosp care 15 min low complexity Subjective: Vlad is intense and rude at times but able to compose herself enough to tolerate an interview. She is angry at her parents, friends, landlady, staff and this observer. "I'm not mad...I just don't respect you." She feels that her family is lying about her and that her landlady is just jealous. She denies the homicidal or suicidal statements attributed to her prior to admission. She seems to relish the idea of opposing me in court, feeling that venue will vindicate her. She denies SI or HI currently and still is refusing medications. Objective - Appearance Appearance: Well Developed/Nourished, Thin Framed Dysmorphic Features: No Hygiene: Normal Grooming: Fairly Well Kept - Behavior Psychomotor Activities: Normal Exhibits Abnormal Movement: No - Attitude and Relatedness Attitude and Relatedness: Hostile Eye Contact: Fair - Speech Quality: Pressured Latencies: Normal Quantity: Terse - Mood Patient's Decription of Mood: "Angry" - Affect Observed Affect: Labile Affect Consistent with: Dysphoria - Thought Process Patient's Thought Process: Coherent Thought Content: Yes Paranoid Ideation, No Passive Wish, No Suicidal Planning, No Homicidal Ideation - Sensorium Experiencing Hallucinations: No, Sensorium is Clear Type of Hallucinations: Visual: No, Auditory: No, Command: No - Level of Consciousness Level of Consciousness: Alert Orientation: Yes Intact, Yes Orientated to Time, Yes Orientated to Place, Yes Orientated to Person - Impulse Control Impulse Control: Poor - Insight and Judgement Insight and Judgement: Impaired - Group Participation Particating in Group Activities: No - Medication Management Medication Management Adherence: Yes Assessment - Assessment Merits Inpatient Hospitalization: For Immediate Safety, For Stabilization Inpatient DSM-IV Dx: I: unspecified bipolar d/o; cannabis use d/o. II: consider borderline personality d/o. III: no active medical problem. IV: severe stressors r/t interpersonal relationships, housing, employment. V: 45 Clinical Impression: 31 y.o. single, white female with a history of episodic depression as well as routine abuse of alcohol and cannabis, who was recently [facility] from the [facility] on November 23, 2016 with a new diagnosis of bipolar geovany, who is now brought back by police on 9.41 status following a five hour stand off with the [facility] SWAT team after the patient had barricaded herself in her apartment, threatening to kill herself. She has made homicidal statements to her landlady and to the landlady's children. Plan - Plan Treatment Plan: Name: VLAD ZAPIEN Birthdate: 1985 [id number] The patient is refusing treatment with Depakote and paliperidone. Will initiate T.O.O. proceedings. Continue involuntary inpatient treatment. Continued Medication Management: Start Medication Medications: Current Medications Acetaminophen (Tylenol Tab*) 650 mg PO Q4H PRN PRN Reason: PAIN or TEMP > 101 F Last Admin: 11/28/16 00:52 Dose: 650 mg Al Hydrox/Mg Hydrox/Simethicone (Maalox Plus*) 30 ml PO Q4H PRN PRN Reason: INDIGESTION Divalproex Sodium (Depakote Er Tab(*)) 1,000 mg PO BEDTIME [facility] Last Admin: 12/01/16 20:37 Dose: Not Given Haloperidol (Haldol Tab*) 5 mg PO Q6H PRN PRN Reason: AGITATION/ANXIETY/INSOMNIA Lorazepam (Ativan Tab(*)) 1 mg PO BID PRN PRN Reason: ANXIETY/AGITATION Multivitamins (Theragran Tab*) 1 tab PO DAILY [facility] Last Admin: 12/02/16 09:16 Dose: Not Given Paliperidone (Invega Tab*) 3 mg PO BEDTIME [facility] Last Admin: 12/01/16 20:37 Dose: Not Given - Discharge Plan Discharge Plan: Inpatient Hospitalization
[2016-12-02] MEDS: Paliperidone TAB* 3 MG TAB PO SCH (21:01)
[2016-12-02] MEDS: Divalproex ER TAB(*) 500 MG PO SCH (21:01)
[2016-12-02] MEDS: CMCS: Melatonin (NF) 3 MG TAB PO SCH (21:06)
[2016-12-03] MEDS: Vitamin THERAPEUTIC TAB PO SCH (08:38)
--- NOTE | 2016-12-03 11:40 | PN ---
MHU: Group Therapy Note - Service Type Service Type: [id number] Group Psychotherapy - Cognitive Behavioral Group Therapy ( CBT):Patient was attentive and participatory in CBT programming this morning, and remained in good behavioral control. Patient expressed positive insights regarding relevant treatment interventions and goals.
--- NOTE | 2016-12-03 15:54 | PN ---
Subjective - Subjective Service Type: [id number] Hosp care 15 min low complexity Subjective: Vlad continues to show no insight into the events that led to her hospitalization. She blames the conflicts in her life on her landlady and family, stating that she is disappointed that they are not as enlightened as she is. "What are they doing with their stupid little lives? 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 There is so much tension in the world and for all their privilege, they choose to do nothing." The patient continues to deny SI or HI. She accuses others of lying and of being jealous of her. Nonetheless, she is calm with this observer. Objective - Appearance Appearance: Thin Framed Dysmorphic Features: No Hygiene: Normal Grooming: Well Kept - Behavior Psychomotor Activities: Normal Exhibits Abnormal Movement: No - Attitude and Relatedness Attitude and Relatedness: Hostile Eye Contact: Good - Speech Quality: Pressured Latencies: Short Quantity: Copious - Mood Patient's Decription of Mood: "Angry" - Affect Observed Affect: Tense Affect Consistent with: Dysphoria - Thought Process Patient's Thought Process: Tangential Thought Content: Yes Paranoid Ideation, No Passive Wish, No Suicidal Planning, No Homicidal Ideation - Sensorium Experiencing Hallucinations: No, Sensorium is Clear Type of Hallucinations: Visual: No, Auditory: No, Command: No - Level of Consciousness Level of Consciousness: Alert Orientation: Yes Intact, Yes Orientated to Time, Yes Orientated to Place, Yes Orientated to Person - Impulse Control Impulse Control: Poor - Insight and Judgement Insight and Judgement: Impaired - Group Participation Particating in Group Activities: No - Medication Management Medication Management Adherence: No Assessment - Assessment Merits Inpatient Hospitalization: For Immediate Safety, For Stabilization Inpatient DSM-IV Dx: I: unspecified bipolar d/o; cannabis use d/o. II: consider borderline personality d/o. III: no active medical problem. IV: severe stressors r/t interpersonal relationships, housing, employment. V: 45 Clinical Impression: 31 y.o. single, white female with a history of episodic depression as well as routine abuse of alcohol and cannabis, who was recently discharged from the [facility] on November 23, 2016 with a new diagnosis of bipolar geovany, who is now brought back by police on 9.41 status following a five hour stand off with the [facility] SWAT team after the patient had barricaded herself in her apartment, threatening to kill herself. She has made homicidal statements to her landlady and to the landlady's children. Plan - Plan Treatment Plan: Name: VLAD ZAPIEN Birthdate: 1985 [id number] The patient is refusing treatment with Depakote and paliperidone. Will initiate T.O.O. proceedings. Continue involuntary inpatient treatment. Continued Medication Management: Start Medication Medications: Current Medications Acetaminophen (Tylenol Tab*) 650 mg PO Q4H PRN PRN Reason: PAIN or TEMP > 101 F Last Admin: 11/28/16 00:52 Dose: 650 mg Al Hydrox/Mg Hydrox/Simethicone (Maalox Plus*) 30 ml PO Q4H PRN PRN Reason: INDIGESTION Divalproex Sodium (Depakote Er Tab(*)) 1,000 mg PO BEDTIME [facility] Last Admin: 12/02/16 21:01 Dose: Not Given Haloperidol (Haldol Tab*) 5 mg PO Q6H PRN PRN Reason: AGITATION/ANXIETY/INSOMNIA Lorazepam (Ativan Tab(*)) 1 mg PO BID PRN PRN Reason: ANXIETY/AGITATION Melatonin (Melatonin (Nf)) 3 mg PO BEDTIME [facility] PRN Reason: Protocol Last Admin: 12/02/16 21:06 Dose: 3 mg Multivitamins (Theragran Tab*) 1 tab PO DAILY [facility] Last Admin: 12/03/16 08:38 Dose: Not Given Paliperidone (Invega Tab*) 3 mg PO BEDTIME [facility] Last Admin: 12/02/16 21:01 Dose: Not Given - Discharge Plan Discharge Plan: Inpatient Hospitalization
[2016-12-03] MEDS: Paliperidone TAB* 3 MG TAB PO SCH (20:43)
[2016-12-03] MEDS: Divalproex ER TAB(*) 500 MG PO SCH (20:43)
[2016-12-03] MEDS: CMCS: Melatonin (NF) 3 MG TAB PO SCH (20:43)
[2016-12-04] MEDS: Vitamin THERAPEUTIC TAB PO SCH (09:02)
[2016-12-04] MEDS: CMCS: Melatonin (NF) 3 MG TAB PO SCH (20:28)
[2016-12-04] MEDS: Paliperidone TAB* 3 MG TAB PO SCH (20:29)
[2016-12-04] MEDS: Divalproex ER TAB(*) 500 MG PO SCH (20:29)
[2016-12-05] MEDS: Vitamin THERAPEUTIC TAB PO SCH (10:52)
[2016-12-05] MEDS: Paliperidone TAB* 3 MG TAB PO SCH (20:48)
[2016-12-05] MEDS: Divalproex ER TAB(*) 500 MG PO SCH (20:48)
[2016-12-05] MEDS: CMCS: Melatonin (NF) 3 MG TAB PO SCH (23:15)
[2016-12-06] MEDS: Vitamin THERAPEUTIC TAB PO SCH (10:17)
--- NOTE | 2016-12-06 13:17 | PN ---
Subjective - Subjective Service Type: [id number] Hosp care 15 min low complexity Subjective: Vlad presents as argumentative and litigious today, apparently upset about reading her T.O.O. affidavit and feeling like it is filled with inaccurate information. She requests that a "witness" accompany us during our session, presumably to prevent me from misconstruing her or being dishonest about our conversation in the documentation. "All those people are lying about me and you 're choosing to believe them and not me. I am angry and I deserve an award for acting as rationally as I have been." She denies SI or HI and feels like she is a victim of her family and her landlady. Objective - Appearance Appearance: Well Developed/Nourished Dysmorphic Features: No Hygiene: Normal Grooming: Well Kept - Behavior Psychomotor Activities: Normal Exhibits Abnormal Movement: No - Attitude and Relatedness Attitude and Relatedness: Hostile Eye Contact: Poor - Speech Quality: Unpressured Latencies: Normal Quantity: Appropriate - Mood Patient's Decription of Mood: "Angry" - Affect Observed Affect: Labile Affect Consistent with: Dysphoria - Thought Process Patient's Thought Process: Goal Directed Thought Content: Yes Paranoid Ideation, No Passive Wish, No Suicidal Planning, No Homicidal Ideation - Sensorium Experiencing Hallucinations: No, Sensorium is Clear Type of Hallucinations: Visual: No, Auditory: No, Command: No - Level of Consciousness Level of Consciousness: Alert Orientation: Yes Intact, Yes Orientated to Time, Yes Orientated to Place, Yes Orientated to Person - Impulse Control Impulse Control: Poor - Insight and Judgement Insight and Judgement: Impaired - Group Participation Particating in Group Activities: No - Medication Management Medication Management Adherence: No Assessment - Assessment Merits Inpatient Hospitalization: For Immediate Safety, For Stabilization Inpatient DSM-IV Dx: I: unspecified bipolar d/o; cannabis use d/o. II: consider borderline personality d/o. III: no active medical problem. IV: severe stressors r/t interpersonal relationships, housing, employment. V: 45 Clinical Impression: 31 y.o. single, white female with a history of episodic depression as well as routine abuse of alcohol and cannabis, who was recently discharged from the [facility] on November 23, 2016 with a new diagnosis of bipolar geovany, who is now brought back by police on 9.41 status following a five hour stand off with the [facility] [facility] team after the patient had barricaded herself in her apartment, threatening to kill herself. She has made homicidal statements to her landlady and to the landlady's children. Plan - Plan Treatment Plan: Name: VLAD ZAPIEN Birthdate: 1985 [id number] The patient is refusing treatment with Depakote and paliperidone. Will initiate T.O.O. proceedings. Continue involuntary inpatient treatment. Continued Medication Management: Start Medication Medications: Current Medications Acetaminophen (Tylenol Tab*) 650 mg PO Q4H PRN PRN Reason: PAIN or TEMP > 101 F Last Admin: 11/28/16 00:52 Dose: 650 mg Al Hydrox/Mg Hydrox/Simethicone (Maalox Plus*) 30 ml PO Q4H PRN PRN Reason: INDIGESTION Divalproex Sodium (Depakote Er Tab(*)) 1,000 mg PO BEDTIME [facility] Last Admin: 12/05/16 20:48 Dose: 1,000 mg Haloperidol (Haldol Tab*) 5 mg PO Q6H PRN PRN Reason: AGITATION/ANXIETY/INSOMNIA Lorazepam (Ativan Tab(*)) 1 mg PO BID PRN PRN Reason: ANXIETY/AGITATION Melatonin (Melatonin (Nf)) 3 mg PO BEDTIME [facility] PRN Reason: Protocol Last Admin: 12/05/16 23:15 Dose: Not Given Multivitamins (Theragran Tab*) 1 tab PO DAILY [facility] Last Admin: 12/06/16 10:17 Dose: Not Given Paliperidone (Invega Tab*) 3 mg PO BEDTIME [facility] Last Admin: 12/05/16 20:48 Dose: 3 mg - Discharge Plan Discharge Plan: Inpatient Hospitalization
[2016-12-06] MEDS: Paliperidone TAB* 3 MG TAB PO SCH (20:51)
[2016-12-06] MEDS: Divalproex ER TAB(*) 500 MG PO SCH (20:51)
[2016-12-06] MEDS: CMCS: Melatonin (NF) 3 MG TAB PO SCH (20:51)
[2016-12-07] MEDS: Vitamin THERAPEUTIC TAB PO SCH (09:36)
--- NOTE | 2016-12-07 11:53 | PN ---
Subjective - Subjective Service Type: [id number] Hosp care 15 min low complexity Subjective: Patient seen in the [facility], as per patient's request. Rosario denies SI or HI but remains paranoid about her family, stating "They're all lying about me and I will nail them in court. Do you want to help me?" She is argumentative and suspicious on exam. Has only taken prescribed meds once over the weekend "in order to sleep." Patient very litigious, stating she is considering legal action against her landlady and family for being dishonest about her. "They just want me on medication so I can stop thinking what I'm thinking about them." Staff reports indicate that she is isolative and minimally interactive on the unit. Her speech is somewhat pressured and she frequently interupts this observer. Objective - Appearance Appearance: Thin Framed Dysmorphic Features: No Hygiene: Normal Grooming: Fairly Well Kept - Behavior Psychomotor Activities: Normal Exhibits Abnormal Movement: No - Attitude and Relatedness Attitude and Relatedness: Guarded Eye Contact: Fair - Speech Quality: Unpressured Latencies: Normal Quantity: Appropriate - Mood Patient's Decription of Mood: "Great" - Affect Observed Affect: Tense Affect Consistent with: Dysphoria - Thought Process Patient's Thought Process: Tangential Thought Content: Yes Paranoid Ideation, No Passive Wish, No Suicidal Planning, No Homicidal Ideation - Sensorium Experiencing Hallucinations: No, Sensorium is Clear Type of Hallucinations: Visual: No, Auditory: No, Command: No - Level of Consciousness Level of Consciousness: Alert Orientation: Yes Intact, Yes Orientated to Time, Yes Orientated to Place, Yes Orientated to Person - Impulse Control Impulse Control: Poor - Insight and Judgement Insight and Judgement: Impaired - Group Participation Particating in Group Activities: No - Medication Management Medication Management Adherence: No Assessment - Assessment Merits Inpatient Hospitalization: For Immediate Safety, For Stabilization Inpatient DSM-IV Dx: I: unspecified bipolar d/o; cannabis use d/o. II: consider borderline personality d/o. III: no active medical problem. IV: severe stressors r/t interpersonal relationships, housing, employment. V: 45 Clinical Impression: 31 y.o. single, white female with a history of episodic depression as well as routine abuse of alcohol and cannabis, who was recently discharged from the [facility] on November 23, 2016 with a new diagnosis of bipolar geovany, who is now brought back by police on 9.41 status following a five hour stand off with the [facility] SWAT team after the patient had barricaded herself in her apartment, threatening to kill herself. She has made homicidal statements to her landlady and to the landlady's children. Plan - Plan Treatment Plan: Name: ROSARIO ZAPIEN Birthdate: 1985 [id number] The patient is refusing treatment with Depakote and paliperidone. Will initiate T.O.O. proceedings. Continue involuntary inpatient treatment. Continued Medication Management: Start Medication Medications: Current Medications Acetaminophen (Tylenol Tab*) 650 mg PO Q4H PRN PRN Reason: PAIN or TEMP > 101 F Last Admin: 11/28/16 00:52 Dose: 650 mg Al Hydrox/Mg Hydrox/Simethicone (Maalox Plus*) 30 ml PO Q4H PRN PRN Reason: INDIGESTION Divalproex Sodium (Depakote Er Tab(*)) 1,000 mg PO BEDTIME [facility] Last Admin: 12/06/16 20:51 Dose: Not Given Haloperidol (Haldol Tab*) 5 mg PO Q6H PRN PRN Reason: AGITATION/ANXIETY/INSOMNIA Lorazepam (Ativan Tab(*)) 1 mg PO BID PRN PRN Reason: ANXIETY/AGITATION Melatonin (Melatonin (Nf)) 3 mg PO BEDTIME [facility] PRN Reason: Protocol Last Admin: 12/06/16 20:51 Dose: Not Given Multivitamins (Theragran Tab*) 1 tab PO DAILY [facility] Last Admin: 12/07/16 09:36 Dose: Not Given Paliperidone (Invega Tab*) 3 mg PO BEDTIME [facility] Last Admin: 12/06/16 20:51 Dose: Not Given - Discharge Plan Discharge Plan: Inpatient Hospitalization
[2016-12-07] MEDS ORDERED: Mouth Piece, Nicotine* 1 EACH CARTRIDGE ONE (13:26)
[2016-12-07] MEDS: Nicotine Inhaler* 10 MG AMP INH PRN (13:27)
[2016-12-07] MEDS: CMCS: Melatonin (NF) 3 MG TAB PO SCH (20:30)
[2016-12-07] MEDS: Paliperidone TAB* 3 MG TAB PO SCH (20:30)
[2016-12-07] MEDS: Divalproex ER TAB(*) 500 MG PO SCH (20:30)
[2016-12-08] MEDS: Vitamin THERAPEUTIC TAB PO SCH (09:20)
--- NOTE | 2016-12-08 13:59 | PN ---
MHU: Group Therapy Note - Service Type Service Type: [id number] Group Psychotherapy - Cognitive Behavioral Group Therapy ( CBT):Patient was attentive and participatory in CBT programming this morning, and remained in good behavioral control. Patient expressed positive insights regarding relevant treatment interventions and goals.
--- NOTE | 2016-12-08 14:02 | PN ---
Subjective - Subjective Service Type: [id number] Hosp care 15 min low complexity Subjective: Patient remains paranoid and suspicious, insisting on seeing me with a female tech present. Patient continues to refuse medications and insists that her family and landlady are lying about her. Patient wants me to call her mother and sister in order to prove that they are lying and is frustrated and threatens to alma me when I inform her that this would not be a productive endeavor. She denies SI or HI. Objective - Appearance Appearance: Thin Framed Dysmorphic Features: No Hygiene: Normal Grooming: Well Kept - Behavior Psychomotor Activities: Normal Exhibits Abnormal Movement: No - Attitude and Relatedness Attitude and Relatedness: Guarded Eye Contact: Fair - Speech Quality: Pressured Latencies: Short Quantity: Copious - Mood Patient's Decription of Mood: "Irritable" - Affect Observed Affect: Tense Affect Consistent with: Dysphoria - Thought Process Patient's Thought Process: Tangential Thought Content: Yes Paranoid Ideation, No Passive Wish, No Suicidal Planning, No Homicidal Ideation - Sensorium Experiencing Hallucinations: No, Sensorium is Clear Type of Hallucinations: Visual: No, Auditory: No, Command: No - Level of Consciousness Level of Consciousness: Alert Orientation: Yes Intact, Yes Orientated to Time, Yes Orientated to Place, Yes Orientated to Person - Impulse Control Impulse Control: Poor - Insight and Judgement Insight and Judgement: Impaired - Group Participation Particating in Group Activities: No - Medication Management Medication Management Adherence: No Assessment - Assessment Merits Inpatient Hospitalization: For Immediate Safety, For Stabilization Inpatient DSM-IV Dx: I: unspecified bipolar d/o; cannabis use d/o. II: consider borderline personality d/o. III: no active medical problem. IV: severe stressors r/t interpersonal relationships, housing, employment. V: 45 Clinical Impression: 31 y.o. single, white female with a history of episodic depression as well as routine abuse of alcohol and cannabis, who was recently [facility], 2016 with a new diagnosis of bipolar geovany, who is now brought back by police on 9.41 status following a five hour stand off with the [employer] SWAT team after the patient had barricaded herself in her apartment, threatening to kill herself. She has made homicidal statements to her landlady and to the landlady's children. Plan - Plan Treatment Plan: Name: VLAD ZAPIEN Birthdate: 1985 [id number] The patient is refusing treatment with Depakote and paliperidone. Will initiate T.O.O. proceedings. Continue involuntary inpatient treatment. Continued Medication Management: Start Medication Medications: Current Medications Acetaminophen (Tylenol Tab*) 650 mg PO Q4H PRN PRN Reason: PAIN or TEMP > 101 F Last Admin: 11/28/16 00:52 Dose: 650 mg Al Hydrox/Mg Hydrox/Simethicone (Maalox Plus*) 30 ml PO Q4H PRN PRN Reason: INDIGESTION Divalproex Sodium (Depakote Er Tab(*)) 1,000 mg PO BEDTIME [facility] Last Admin: 12/07/16 20:30 Dose: Not Given Haloperidol (Haldol Tab*) 5 mg PO Q6H PRN PRN Reason: AGITATION/ANXIETY/INSOMNIA Lorazepam (Ativan Tab(*)) 1 mg PO BID PRN PRN Reason: ANXIETY/AGITATION Melatonin (Melatonin (Nf)) 3 mg PO BEDTIME ANGELINE PRN Reason: Protocol Last Admin: 12/07/16 20:30 Dose: Not Given Multivitamins (Theragran Tab*) 1 tab PO DAILY ANGELINE Last Admin: 12/08/16 09:20 Dose: Not Given Nicotine (Nicotine Inhaler*) 10 mg INH Q2H PRN PRN Reason: CRAVING Last Admin: 12/07/16 13:27 Dose: 10 mg Paliperidone (Invega Tab*) 3 mg PO BEDTIME ANGELINE Last Admin: 12/07/16 20:30 Dose: Not Given - Discharge Plan Discharge Plan: Inpatient Hospitalization
[2016-12-08] MEDS: Paliperidone TAB* 3 MG TAB PO SCH (21:05)
[2016-12-08] MEDS: Divalproex ER TAB(*) 500 MG PO SCH (21:05)
[2016-12-08] MEDS: CMCS: Melatonin (NF) 3 MG TAB PO SCH (21:05)
[2016-12-09] MEDS: Vitamin THERAPEUTIC TAB PO SCH (10:29)
--- NOTE | 2016-12-09 14:06 | PN ---
Subjective - Subjective Service Type: [id number] Hosp care 15 min low complexity Subjective: The patient remains suspicious and guarded, insisting on female staff accompaniment during our interview. She remains argumentative, litigious and non-adherent with treatment. During our conversation she interrupts me several times insisting that all four of her family members, her two landlords and several of her friends who have voiced concerns about her recent behavior are the "crazy ones" and that her rights are being violated. Objective - Appearance Appearance: Well Developed/Nourished Dysmorphic Features: No Hygiene: Normal Grooming: Well Kept - Behavior Psychomotor Activities: Normal Exhibits Abnormal Movement: No - Attitude and Relatedness Attitude and Relatedness: Guarded Eye Contact: Fair - Speech Quality: Pressured Latencies: Short Quantity: Copious - Mood Patient's Decription of Mood: "Angry" - Affect Observed Affect: Labile Affect Consistent with: Dysphoria - Thought Process Patient's Thought Process: Tangential Thought Content: Yes Paranoid Ideation, No Passive Wish, No Suicidal Planning, No Homicidal Ideation - Sensorium Experiencing Hallucinations: No, Sensorium is Clear Type of Hallucinations: Visual: No, Auditory: No, Command: No - Level of Consciousness Level of Consciousness: Alert Orientation: Yes Intact, Yes Orientated to Time, Yes Orientated to Place, Yes Orientated to Person - Impulse Control Impulse Control: Poor - Insight and Judgement Insight and Judgement: Impaired - Group Participation Particating in Group Activities: No - Medication Management Medication Management Adherence: No Assessment - Assessment Merits Inpatient Hospitalization: For Immediate Safety, For Stabilization Inpatient DSM-IV Dx: I: unspecified bipolar d/o; cannabis use d/o. II: consider borderline personality d/o. III: no active medical problem. IV: severe stressors r/t interpersonal relationships, housing, employment. V: 45 Clinical Impression: 31 y.o. single, white female with a history of episodic depression as well as routine abuse of alcohol and cannabis, who was recently [facility] from the [facility] on [facility], 2016 with a new diagnosis of bipolar geovayn, who is now brought back by police on 9.41 status following a five hour stand off with the [employer] SWAT team after the patient had barricaded herself in her apartment, threatening to kill herself. She has made homicidal statements to her landlady and to the landlady's children. Plan - Plan Treatment Plan: Name: VLAD ZAPIEN Birthdate: 1985 [id number] The patient is refusing treatment with Depakote and paliperidone. Will initiate T.O.O. proceedings. Continue involuntary inpatient treatment. Continued Medication Management: Start Medication Medications: Current Medications Acetaminophen (Tylenol Tab*) 650 mg PO Q4H PRN PRN Reason: PAIN or TEMP > 101 F Last Admin: 11/28/16 00:52 Dose: 650 mg Al Hydrox/Mg Hydrox/Simethicone (Maalox Plus*) 30 ml PO Q4H PRN PRN Reason: INDIGESTION Divalproex Sodium (Depakote Er Tab(*)) 1,000 mg PO BEDTIME [facility] Last Admin: 12/08/16 21:05 Dose: Not Given Haloperidol (Haldol Tab*) 5 mg PO Q6H PRN PRN Reason: AGITATION/ANXIETY/INSOMNIA Lorazepam (Ativan Tab(*)) 1 mg PO BID PRN PRN Reason: ANXIETY/AGITATION Melatonin (Melatonin (Nf)) 3 mg PO BEDTIME ANGELINE PRN Reason: Protocol Last Admin: 12/08/16 21:05 Dose: Not Given Multivitamins (Theragran Tab*) 1 tab PO DAILY ANGELINE Last Admin: 12/09/16 10:29 Dose: Not Given Nicotine (Nicotine Inhaler*) 10 mg INH Q2H PRN PRN Reason: CRAVING Last Admin: 12/07/16 13:27 Dose: 10 mg Paliperidone (Invega Tab*) 3 mg PO BEDTIME ANGELINE Last Admin: 12/08/16 21:05 Dose: Not Given - Discharge Plan Discharge Plan: Inpatient Hospitalization
[2016-12-09] MEDS: Nicotine Inhaler* 10 MG AMP INH PRN (15:59)
[2016-12-09] MEDS: Divalproex ER TAB(*) 500 MG PO SCH (20:30)
[2016-12-09] MEDS: Paliperidone TAB* 3 MG TAB PO SCH (20:30)
[2016-12-09] MEDS: CMCS: Melatonin (NF) 3 MG TAB PO SCH (20:30)
[2016-12-10] MEDS: Vitamin THERAPEUTIC TAB PO SCH (08:44)
--- NOTE | 2016-12-10 11:37 | PN ---
MHU: Group Therapy Note - Service Type Service Type: [id number] Group Psychotherapy - Cognitive Behavioral Group Therapy ( CBT):Patient was attentive and participatory in CBT programming this morning, and remained in good behavioral control. Patient expressed positive insights regarding relevant treatment interventions and goals.
--- NOTE | 2016-12-10 14:51 | PN ---
Subjective - Subjective Service Type: [id number] Hosp care 15 min low complexity Subjective: The patient declines to have a one to one session with this observer today, stating "I'm not gonna take your medications so there's nothing to discuss." She remains hostile and paranoid, although she continues to deny SI or HI. Objective - Appearance Appearance: Thin Framed Dysmorphic Features: No Hygiene: Normal Grooming: Well Kept - Behavior Psychomotor Activities: Normal Exhibits Abnormal Movement: No - Attitude and Relatedness Attitude and Relatedness: Hostile Eye Contact: Poor - Speech Quality: Unpressured Latencies: Normal Quantity: Terse - Mood Patient's Decription of Mood: "Irritable" - Affect Observed Affect: Tense Affect Consistent with: Dysphoria - Thought Process Patient's Thought Process: Coherent Thought Content: Yes Paranoid Ideation, No Passive Wish, No Suicidal Planning, No Homicidal Ideation - Sensorium Experiencing Hallucinations: No, Sensorium is Clear Type of Hallucinations: Visual: No, Auditory: No, Command: No - Level of Consciousness Level of Consciousness: Alert Orientation: Yes Intact, Yes Orientated to Time, Yes Orientated to Place, Yes Orientated to Person - Impulse Control Impulse Control: Poor - Insight and Judgement Insight and Judgement: Impaired - Group Participation Particating in Group Activities: No - Medication Management Medication Management Adherence: No Assessment - Assessment Merits Inpatient Hospitalization: For Immediate Safety, For Stabilization Inpatient DSM-IV Dx: I: unspecified bipolar d/o; cannabis use d/o. II: consider borderline personality d/o. III: no active medical problem. IV: severe stressors r/t interpersonal relationships, housing, employment. V: 45 Clinical Impression: 31 y.o. single, white female with a history of episodic depression as well as routine abuse of alcohol and cannabis, who was recently [facility] from the [facility] on [facility], 2016 with a new diagnosis of bipolar geovany, who is now brought back by police on 9.41 status following a five hour stand off with the [employer] team after the patient had barricaded herself in her apartment, threatening to kill herself. She has made homicidal statements to her landlady and to the landlady's children. Plan - Plan Treatment Plan: Name: VLAD ZAPIEN Birthdate: 1985 [id number] The patient is refusing treatment with Depakote and paliperidone. Will initiate T.O.O. proceedings. Continue involuntary inpatient treatment. Continued Medication Management: Start Medication Medications: Current Medications Acetaminophen (Tylenol Tab*) 650 mg PO Q4H PRN PRN Reason: PAIN or TEMP > 101 F Last Admin: 11/28/16 00:52 Dose: 650 mg Al Hydrox/Mg Hydrox/Simethicone (Maalox Plus*) 30 ml PO Q4H PRN PRN Reason: INDIGESTION Divalproex Sodium (Depakote Er Tab(*)) 1,000 mg PO BEDTIME [facility] Last Admin: 12/09/16 20:30 Dose: Not Given Haloperidol (Haldol Tab*) 5 mg PO Q6H PRN PRN Reason: AGITATION/ANXIETY/INSOMNIA Lorazepam (Ativan Tab(*)) 1 mg PO BID PRN PRN Reason: ANXIETY/AGITATION Melatonin (Melatonin (Nf)) 3 mg PO BEDTIME ANGELINE PRN Reason: Protocol Last Admin: 12/09/16 20:30 Dose: Not Given Multivitamins (Theragran Tab*) 1 tab PO DAILY [facility] Last Admin: 12/10/16 08:44 Dose: Not Given Nicotine (Nicotine Inhaler*) 10 mg INH Q2H PRN PRN Reason: CRAVING Last Admin: 12/09/16 15:59 Dose: 10 mg Paliperidone (Invega Tab*) 3 mg PO BEDTIME [facility] Last Admin: 12/09/16 20:30 Dose: Not Given - Discharge Plan Discharge Plan: Inpatient Hospitalization
[2016-12-10] MEDS: Acetaminophen TAB* 325 MG PO PRN (20:03)
[2016-12-10] MEDS: Paliperidone TAB* 3 MG TAB PO SCH (22:07)
[2016-12-10] MEDS: Divalproex ER TAB(*) 500 MG PO SCH (22:07)
[2016-12-10] MEDS: CMCS: Melatonin (NF) 3 MG TAB PO SCH (22:07)
[2016-12-11] MEDS: LORazepam TAB(*) 1 MG PO PRN ×2 (10:14→21:42)
[2016-12-11] MEDS: Vitamin THERAPEUTIC TAB PO SCH (10:15)
[2016-12-11] MEDS: Paliperidone TAB* 3 MG TAB PO SCH (21:15)
[2016-12-11] MEDS: CMCS: Melatonin (NF) 3 MG TAB PO SCH ×2 (21:15→21:42)
[2016-12-11] MEDS: Divalproex ER TAB(*) 500 MG PO SCH (21:15)
[2016-12-12] MEDS: Vitamin THERAPEUTIC TAB PO SCH (11:07)
[2016-12-12] MEDS: CMCS: Melatonin (NF) 3 MG TAB PO SCH ×2 (22:27→22:39)
[2016-12-12] MEDS: Divalproex ER TAB(*) 500 MG PO SCH (22:27)
[2016-12-12] MEDS: Paliperidone TAB* 3 MG TAB PO SCH (22:28)
[2016-12-12] MEDS: LORazepam TAB(*) 1 MG PO PRN (22:39)
[2016-12-13] MEDS: Vitamin THERAPEUTIC TAB PO SCH (07:44)
[2016-12-13] MEDS: Nicotine Inhaler* 10 MG AMP INH PRN ×2 (07:45→15:32)
[2016-12-13] MEDS: LORazepam TAB(*) 1 MG PO PRN ×2 (11:54→20:27)
--- NOTE | 2016-12-13 13:05 | PN ---
MHU: Group Therapy Note - Service Type Service Type: [id number] Group Psychotherapy - Cognitive Behavioral Group Therapy ( CBT):Patient was attentive and participatory in CBT programming this morning, and remained in good behavioral control. Patient expressed positive insights regarding relevant treatment interventions and goals.
--- NOTE | 2016-12-13 16:48 | PN ---
Subjective - Subjective Service Type: [id number] Hosp care 15 min low complexity Subjective: Rosario continues to present as paranoid and distrustful, as evidenced by her continued refusal to place her parents on the [place] and her insistence on meeting with me accompanied by a male peer. I explain the process for retrieving her police records from the incident leading up to hospitalization, which she has framed as a "he said, she said" disagreement between her and her family, who she accuses of lying about her. She refuses medications and will not entertain the idea that she has active mental illness. Objective - Appearance Appearance: Thin Framed Dysmorphic Features: No Hygiene: Normal Grooming: Well Kept - Behavior Psychomotor Activities: Normal Exhibits Abnormal Movement: No - Attitude and Relatedness Attitude and Relatedness: Guarded Eye Contact: Fair - Speech Quality: Pressured Latencies: Short Quantity: Copious - Mood Patient's Decription of Mood: "Terrible" - Affect Observed Affect: Labile Affect Consistent with: Dysphoria - Thought Process Patient's Thought Process: Tangential Thought Content: Yes Paranoid Ideation, No Passive Wish, No Suicidal Planning, No Homicidal Ideation - Sensorium Experiencing Hallucinations: No, Sensorium is Clear Type of Hallucinations: Visual: No, Auditory: No, Command: No - Level of Consciousness Level of Consciousness: Alert Orientation: Yes Intact, Yes Orientated to Time, Yes Orientated to Place, Yes Orientated to Person - Impulse Control Impulse Control: Poor - Insight and Judgement Insight and Judgement: Impaired - Group Participation Particating in Group Activities: No - Medication Management Medication Management Adherence: No Assessment - Assessment Merits Inpatient Hospitalization: For Immediate Safety, For Stabilization Inpatient DSM-IV Dx: I: unspecified bipolar d/o; cannabis use d/o. II: consider borderline personality d/o. III: no active medical problem. IV: severe stressors r/t interpersonal relationships, housing, employment. V: 45 Clinical Impression: 31 y.o. single, white female with a history of episodic depression as well as routine abuse of alcohol and cannabis, who was recently [facility] the [facility] on [facility], 2016 with a new diagnosis of bipolar geovany, who is now brought back by police on 9.41 status following a five hour stand off with the [email or web address] team after the patient had barricaded herself in her apartment, threatening to kill herself. She has made homicidal statements to her landlady and [facility]. Plan - Plan Treatment Plan: Name: ROSARIO ZAPIEN Birthdate: 1985 [id number] The patient is refusing treatment with Depakote and paliperidone. Will initiate T.O.O. proceedings. Continue involuntary inpatient treatment. Continued Medication Management: Start Medication Medications: Current Medications Acetaminophen (Tylenol Tab*) 650 mg PO Q4H PRN PRN Reason: PAIN or TEMP > 101 F Last Admin: 12/10/16 20:03 Dose: 650 mg Al Hydrox/Mg Hydrox/Simethicone (Maalox Plus*) 30 ml PO Q4H PRN PRN Reason: INDIGESTION Divalproex Sodium (Depakote Er Tab(*)) 1,000 mg PO BEDTIME [facility] Last Admin: 12/12/16 22:27 Dose: Not Given Haloperidol (Haldol Tab*) 5 mg PO Q6H PRN PRN Reason: AGITATION/ANXIETY/INSOMNIA Lorazepam (Ativan Tab(*)) 1 mg PO BID PRN PRN Reason: ANXIETY/AGITATION Last Admin: 12/13/16 11:54 Dose: 1 mg Melatonin (Melatonin (Nf)) 3 mg PO BEDTIME ANGELINE PRN Reason: Protocol Last Admin: 12/12/16 22:39 Dose: 3 mg Multivitamins (Theragran Tab*) 1 tab PO DAILY [facility] Last Admin: 12/13/16 07:44 Dose: 1 tab Nicotine (Nicotine Inhaler*) 10 mg INH Q2H PRN PRN Reason: CRAVING Last Admin: 12/13/16 15:32 Dose: 10 mg Paliperidone (Invega Tab*) 3 mg PO BEDTIME ANGELINE Last Admin: 12/12/16 22:28 Dose: Not Given - Discharge Plan Discharge Plan: Inpatient Hospitalization
[2016-12-13] MEDS: Divalproex ER TAB(*) 500 MG PO SCH (20:22)
[2016-12-13] MEDS: Paliperidone TAB* 3 MG TAB PO SCH (20:22)
[2016-12-13] MEDS: CMCS: Melatonin (NF) 3 MG TAB PO SCH (20:27)
[2016-12-14] MEDS: Vitamin THERAPEUTIC TAB PO SCH (11:35)
[2016-12-14] MEDS: Acetaminophen TAB* 325 MG PO PRN (18:07)
[2016-12-14] MEDS: LORazepam TAB(*) 1 MG PO PRN (18:07)
[2016-12-14] MEDS: CMCS: Melatonin (NF) 3 MG TAB PO SCH ×2 (21:19→21:46)
[2016-12-14] MEDS: Divalproex ER TAB(*) 500 MG PO SCH (21:19)
[2016-12-14] MEDS: Paliperidone TAB* 3 MG TAB PO SCH (21:20)
[2016-12-15] MEDS: LORazepam TAB(*) 1 MG PO PRN ×2 (07:52→20:50)
[2016-12-15] MEDS: Nicotine Inhaler* 10 MG AMP INH PRN ×2 (07:53→20:51)
[2016-12-15] MEDS: Vitamin THERAPEUTIC TAB PO SCH (07:53)
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
--- NOTE | 2016-12-15 16:17 | PN ---
MHU: Group Therapy Note - Service Type Service Type: [id number] Group Psychotherapy - Medication Education Group: Patient was attentive and participatory in group, and remained in good behavioral control. Patient expressed positive insights regarding relevant treatment interventions. Patient stated understanding of material discussed and had appropriate questions.
[2016-12-15] MEDS: Divalproex ER TAB(*) 500 MG PO SCH (20:13)
[2016-12-15] MEDS: Paliperidone TAB* 3 MG TAB PO SCH (20:13)
[2016-12-15] MEDS: CMCS: Melatonin (NF) 3 MG TAB PO SCH (20:49)
[2016-12-16] MEDS: Vitamin THERAPEUTIC TAB PO SCH (08:49)
[2016-12-16] MEDS: LORazepam TAB(*) 1 MG PO PRN (08:49)
[2016-12-16] MEDS: Nicotine Inhaler* 10 MG AMP INH PRN (08:49)
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
[2016-12-16] MEDS: QUEtiapine TAB* 100 MG PO SCH (20:39)
[2016-12-16] MEDS: CMCS: Melatonin (NF) 3 MG TAB PO SCH (20:39)
[2016-12-17] MEDS: Vitamin THERAPEUTIC TAB PO SCH (09:21)
[2016-12-17] MEDS: LORazepam TAB(*) 1 MG PO PRN ×2 (09:21→18:41)
[2016-12-17] MEDS: Nicotine Inhaler* 10 MG AMP INH PRN (09:22)
--- NOTE | 2016-12-17 14:53 | PN ---
Subjective - Subjective Service Type: 06971 Hosp care 15 min low complexity Subjective: Patient appears flat and defeated. "I have no job, no support, no place to live , and, according to you, I'm mentally ill and disabled." This loan underwriter clarifies that disability is a government determination, typically supported by an outpatient provider, and furthermore, that I view her as highly abled, as long as she stays in treatment and on medication. She continues to deny SI or HI. She is interested in finding housing in the community and is requesting staff assistance with this. Objective - Appearance Appearance: Thin Framed Dysmorphic Features: No Hygiene: Normal Grooming: Fairly Well Kept - Behavior Psychomotor Activities: Normal Exhibits Abnormal Movement: No - Attitude and Relatedness Attitude and Relatedness: Guarded Eye Contact: Fair - Speech Quality: Unpressured Latencies: Normal Quantity: Appropriate - Mood Patient's Decription of Mood: "Okay" - Affect Observed Affect: Constricted Affect Consistent with: Dysphoria - Thought Process Patient's Thought Process: Coherent Thought Content: Yes Paranoid Ideation, No Passive Wish, No Suicidal Planning, No Homicidal Ideation - Sensorium Experiencing Hallucinations: No, Sensorium is Clear Type of Hallucinations: Visual: No, Auditory: No, Command: No - Level of Consciousness Level of Consciousness: Alert Orientation: Yes Intact, Yes Orientated to Time, Yes Orientated to Place, Yes Orientated to Person - Impulse Control Impulse Control: Poor - Insight and Judgement Insight and Judgement: Impaired - Group Participation Particating in Group Activities: Yes - Medication Management Medication Management Adherence: Yes Assessment - Assessment Merits Inpatient Hospitalization: For Immediate Safety, For Stabilization Inpatient DSM-IV Dx: I: unspecified bipolar d/o; cannabis use d/o. II: consider borderline personality d/o. III: no active medical problem. IV: severe stressors r/t interpersonal relationships, housing, employment. V: 45 Clinical Impression: 31 y.o. single, white female with a history of episodic depression as well as routine abuse of alcohol and cannabis, who was recently [facility] from the [facility] on November [facility], 2016 with a new diagnosis of bipolar geovany, who is now brought back by police on 9.41 status following a five hour stand off with the [employer] team after the patient had barricaded herself in her apartment, threatening to kill herself. She has made homicidal statements to her landlady and to [facility]. Plan - Plan Treatment Plan: Name: VLAD ZAPIEN Birthdate: 1985 [id number] The patient is currently accepting a trial of quetiapine 100mg PO qhs. Under the chain mortiser operator's decision, we can opt for intramuscular antipsychotic therapy if this becomes necessary. Will need metabolic labs. Continue involuntary inpatient treatment. Continued Medication Management: Start Medication Medications: Current Medications Acetaminophen (Tylenol Tab*) 650 mg PO Q4H PRN PRN Reason: PAIN or TEMP > 101 F Last Admin: 12/14/16 18:07 Dose: 650 mg Al Hydrox/Mg Hydrox/Simethicone (Maalox Plus*) 30 ml PO Q4H PRN PRN Reason: INDIGESTION Haloperidol (Haldol Tab*) 5 mg PO Q6H PRN PRN Reason: AGITATION/ANXIETY/INSOMNIA Lorazepam (Ativan Tab(*)) 1 mg PO BID PRN PRN Reason: ANXIETY/AGITATION Last Admin: 12/17/16 09:21 Dose: 1 mg Melatonin (Melatonin (Nf)) 3 mg PO BEDTIME ANGELINE PRN Reason: Protocol Last Admin: 12/16/16 20:39 Dose: 3 mg Multivitamins (Theragran Tab*) 1 tab PO DAILY [facility] Last Admin: 12/17/16 09:21 Dose: 1 tab Nicotine (Nicotine Inhaler*) 10 mg INH Q2H PRN PRN Reason: CRAVING Last Admin: 12/17/16 09:22 Dose: 10 mg Quetiapine Fumarate (Seroquel Tab*) 100 mg PO BEDTIME [facility] Last Admin: 12/16/16 20:39 Dose: 100 mg - Discharge Plan Discharge Plan: Inpatient Hospitalization
[2016-12-17] MEDS: QUEtiapine TAB* 100 MG PO SCH (21:11)
[2016-12-17] MEDS: CMCS: Melatonin (NF) 3 MG TAB PO SCH (21:11)
[2016-12-18] MEDS: Vitamin THERAPEUTIC TAB PO SCH ×2 (10:43→11:35)
[2016-12-18] MEDS: Nicotine Inhaler* 10 MG AMP INH PRN (11:35)
[2016-12-18] MEDS: Acetaminophen TAB* 325 MG PO PRN (16:02)
[2016-12-18] MEDS: CMCS: Melatonin (NF) 3 MG TAB PO SCH (20:43)
[2016-12-18] MEDS: QUEtiapine TAB* 100 MG PO SCH (20:44)
[2016-12-19] MEDS: Vitamin THERAPEUTIC TAB PO SCH (08:27)
[2016-12-19] MEDS: Nicotine Inhaler* 10 MG AMP INH PRN (15:02)
[2016-12-19] MEDS: LORazepam TAB(*) 1 MG PO PRN (20:25)
[2016-12-19] MEDS: CMCS: Melatonin (NF) 3 MG TAB PO SCH (22:03)
[2016-12-19] MEDS: QUEtiapine TAB* 100 MG PO SCH (22:03)
[2016-12-20] MEDS: Vitamin THERAPEUTIC TAB PO SCH (11:12)
--- NOTE | 2016-12-20 11:33 | PN ---
Subjective - Subjective Service Type: 14557 Hosp care 25 min moderate complexity Subjective: Rosario is seen in her room for follow up. I understand she has been taking the quetiapine with minimal encouragement and has been sleeping well and safe on all checks. Today she is invited to converse about discharge planning subjects , but seems disinterested in this, stating "You guys diagnosed me as crazy and found it necessary to force medicines on me. I'm gonna force you to treat me that way. I need social security and a place to stay." She refuses to contact her parents, believing that they have lied and manipulated the system to get her admitted and deemed "crazy." She similarly refuses to involve friends in discharge planning, stating "You think I'm ask my friends for help when I've just been in a psych stewart for a month?" She is accusatory and argumentative, but seems less paranoid and more hurt and embarrassed than anything. She's quite angry at this clinician in particular, believing that I have not listened to her and do not respect her. She denies SI or HI. Objective - Appearance Appearance: Thin Framed Dysmorphic Features: No Hygiene: Normal Grooming: Well Kept - Behavior Psychomotor Activities: Normal Exhibits Abnormal Movement: No - Attitude and Relatedness Attitude and Relatedness: Hostile Eye Contact: Good - Speech Quality: Pressured Latencies: Normal Quantity: Appropriate - Mood Patient's Decription of Mood: "Angry" - Affect Observed Affect: Tense Affect Consistent with: Dysphoria - Thought Process Patient's Thought Process: Coherent Thought Content: No Passive Wish, No Suicidal Planning, No Homicidal Ideation, No Paranoid Ideation - Sensorium Experiencing Hallucinations: No, Sensorium is Clear Type of Hallucinations: Visual: No, Auditory: No, Command: No - Level of Consciousness Level of Consciousness: Alert Orientation: Yes Intact, Yes Orientated to Time, Yes Orientated to Place, Yes Orientated to Person - Impulse Control Impulse Control: Poor - Insight and Judgement Insight and Judgement: Impaired - Group Participation Particating in Group Activities: Yes - Medication Management Medication Management Adherence: Yes Assessment - Assessment Merits Inpatient Hospitalization: Consolidate Improvements, Pending Safe DC Plan Inpatient DSM-IV Dx: I: unspecified bipolar d/o; cannabis use d/o. II: consider borderline personality d/o. III: no active medical problem. IV: severe stressors r/t interpersonal relationships, housing, employment. V: 45 Clinical Impression: 31 y.o. single, white female with a history of episodic depression as well as routine abuse of alcohol and cannabis, who was recently discharged from the [facility] on November 23, 2016 with a new diagnosis of bipolar geovany, who is now brought back by police on 9.41 status following a five hour stand off with the [facility] SWAT team after the patient had barricaded herself in her apartment, threatening to kill herself. She has made homicidal statements to her landlady and to the [facility]. Plan - Plan Treatment Plan: Name: ROSARIO ZAPIEN Birthdate: 1985 [id number] The patient is currently accepting a trial of quetiapine 100mg PO qhs. At this time we are seeing perhaps [place] II pathology coming to the fore as her [place] I pathology improves. She is quite argumentative and passive aggressive. Continue involuntary inpatient treatment as we attempt to secure placement without the assistance of her family, per her insistence. Continued Medication Management: Start Medication Medications: Current Medications Acetaminophen (Tylenol Tab*) 650 mg PO Q4H PRN PRN Reason: PAIN or TEMP > 101 F Last Admin: 12/18/16 16:02 Dose: 650 mg Al Hydrox/Mg Hydrox/Simethicone (Maalox Plus*) 30 ml PO Q4H PRN PRN Reason: INDIGESTION Haloperidol (Haldol Tab*) 5 mg PO Q6H PRN PRN Reason: AGITATION/ANXIETY/INSOMNIA Lorazepam (Ativan Tab(*)) 1 mg PO BID PRN PRN Reason: ANXIETY/AGITATION Last Admin: 12/19/16 20:25 Dose: 1 mg Melatonin (Melatonin (Nf)) 3 mg PO BEDTIME ANGELINE PRN Reason: Protocol Last Admin: 12/19/16 22:03 Dose: 3 mg Multivitamins (Theragran Tab*) 1 tab PO DAILY ANGELINE Last Admin: 12/20/16 11:12 Dose: Not Given Nicotine (Nicotine Inhaler*) 10 mg INH Q2H PRN PRN Reason: CRAVING Last Admin: 12/19/16 15:02 Dose: 10 mg Quetiapine Fumarate (Seroquel Tab*) 100 mg PO BEDTIME ANGELINE Last Admin: 12/19/16 22:03 Dose: 100 mg - Discharge Plan Discharge Plan: Outpatient Follow Up Outpatient Program: [facility]
[2016-12-20] MEDS: LORazepam TAB(*) 1 MG PO PRN (18:32)
[2016-12-20] MEDS: CMCS: Melatonin (NF) 3 MG TAB PO SCH (21:30)
[2016-12-20] MEDS: QUEtiapine TAB* 100 MG PO SCH (21:30)
[2016-12-21] MEDS: Vitamin THERAPEUTIC TAB PO SCH (08:13)
--- NOTE | 2016-12-21 12:14 | PN ---
Subjective - Subjective Service Type: 03211 Hosp care 15 min low complexity Subjective: Rosario continues to be difficult to work with. She will not allow us to communicate with her family and refuses to allow them to be even secondarily involved in her discharge planning. "My goal is to stay away from them for the rest of my life!" She seems less paranoid and more passive aggressive in these sentiments to this observer. At any rate, this clinician did receive an email from the patient's mother, which I could not respond to, that Rosario has apparently given her car keys to a former male peer here on the unit named Rene. This person showed up in our ED last night requesting admission to speak with her. After being discharged he returned making homicidal claims and insisting on being admitted. We are in the process of transferring him to a different facility. I confront Rosario about this with respect to her judgment, to which she responds "Why can't I be friends with who I want to be friends with ?" At this time she is requesting discharge to [facility] homeless services such as a hotel or rescue mission. She continues to deny SI or HI. She is tolerating the quetiapine well. Objective - Appearance Appearance: Thin Framed Dysmorphic Features: No Hygiene: Normal Grooming: Well Kept - Behavior Psychomotor Activities: Normal Exhibits Abnormal Movement: No - Attitude and Relatedness Attitude and Relatedness: Hostile Eye Contact: Good - Speech Quality: Unpressured Latencies: Normal Quantity: Appropriate - Mood Patient's Decription of Mood: "Fine" - Affect Observed Affect: Fair Affect Consistent with: Euthymia - Thought Process Patient's Thought Process: Coherent Thought Content: No Passive Wish, No Suicidal Planning, No Homicidal Ideation, No Paranoid Ideation - Sensorium Experiencing Hallucinations: No, Sensorium is Clear Type of Hallucinations: Visual: No, Auditory: No, Command: No - Level of Consciousness Level of Consciousness: Alert Orientation: Yes Intact, Yes Orientated to Time, Yes Orientated to Place, Yes Orientated to Person - Impulse Control Impulse Control: Tenuous - Insight and Judgement Insight and Judgement: Poor - Group Participation Particating in Group Activities: Yes - Medication Management Medication Management Adherence: Yes Assessment - Assessment Merits Inpatient Hospitalization: Consolidate Improvements, Pending Safe DC Plan Inpatient DSM-IV Dx: I: unspecified bipolar d/o; cannabis use d/o. II: consider borderline personality d/o. III: no active medical problem. IV: severe stressors r/t interpersonal relationships, housing, employment. V: 45 Clinical Impression: 31 y.o. single, white female with a history of episodic depression as well as routine abuse of alcohol and cannabis, who was recently discharged from the [facility] on November 23, 2016 with a new diagnosis of bipolar geovany, who is now brought back by police on 9.41 status following a five hour stand off with the [facility] SWAT team after the patient had barricaded herself in her apartment, threatening to kill herself. She has made homicidal statements to her landlady and to the landlady's children. Plan - Plan Treatment Plan: Name: ROSARIO ZAPIEN Birthdate: 1985 [id number] The patient is currently accepting a trial of quetiapine 100mg PO qhs. At this time we are seeing perhaps [place] II pathology coming to the fore as her [place] I pathology improves. She is quite argumentative and passive aggressive. Continue involuntary inpatient treatment as we attempt to secure placement without the assistance of her family, per her insistence. Continued Medication Management: Start Medication Medications: Current Medications Acetaminophen (Tylenol Tab*) 650 mg PO Q4H PRN PRN Reason: PAIN or TEMP > 101 F Last Admin: 12/18/16 16:02 Dose: 650 mg Al Hydrox/Mg Hydrox/Simethicone (Maalox Plus*) 30 ml PO Q4H PRN PRN Reason: INDIGESTION Haloperidol (Haldol Tab*) 5 mg PO Q6H PRN PRN Reason: AGITATION/ANXIETY/INSOMNIA Lorazepam (Ativan Tab(*)) 1 mg PO BID PRN PRN Reason: ANXIETY/AGITATION Last Admin: 12/20/16 18:32 Dose: 1 mg Melatonin (Melatonin (Nf)) 3 mg PO BEDTIME ANGELINE PRN Reason: Protocol Last Admin: 12/20/16 21:30 Dose: Not Given Multivitamins (Theragran Tab*) 1 tab PO DAILY ANGELINE Last Admin: 12/21/16 08:13 Dose: Not Given Nicotine (Nicotine Inhaler*) 10 mg INH Q2H PRN PRN Reason: CRAVING Last Admin: 12/19/16 15:02 Dose: 10 mg Quetiapine Fumarate (Seroquel Tab*) 100 mg PO BEDTIME ANGELINE Last Admin: 12/20/16 21:30 Dose: 100 mg - Discharge Plan Discharge Plan: Outpatient Follow Up Outpatient Program: [facility]
[2016-12-21] MEDS: LORazepam TAB(*) 1 MG PO PRN (16:01)
[2016-12-21] MEDS: CMCS: Melatonin (NF) 3 MG TAB PO SCH (20:11)
[2016-12-21] MEDS: QUEtiapine TAB* 100 MG PO SCH (21:24)
[2016-12-22 09:51] LABS: HDL Cholesterol 69.3 mg/dL
[2016-12-22] MEDS: Vitamin THERAPEUTIC TAB PO SCH ×2 (10:50→11:13)
[2016-12-22] MEDS: LORazepam TAB(*) 1 MG PO PRN ×2 (11:13→20:35)
--- NOTE | 2016-12-22 15:45 | PN ---
Subjective - Subjective Service Type: 29921 Hosp care 15 min low complexity Subjective: Vlad is more cooperative today. She states that she sent her father a polite email requesting the return of her belongings and was able to get the keys to her car back from the former unit peer who has since been rehospitalized at a different facility. She demonstrates some reasonable insight that that individual has mental illness problems and is not the safest person to be intertwining with. She continues to take quetiapine as directed and denies SI or HI. Objective - Appearance Appearance: Thin Framed Dysmorphic Features: No Hygiene: Normal Grooming: Fairly Well Kept - Behavior Psychomotor Activities: Normal Exhibits Abnormal Movement: No - Attitude and Relatedness Attitude and Relatedness: Cooperative Eye Contact: Fair - Speech Quality: Unpressured Latencies: Normal Quantity: Appropriate - Mood Patient's Decription of Mood: "Okay" - Affect Observed Affect: Tense Affect Consistent with: Euthymia - Thought Process Patient's Thought Process: Coherent Thought Content: No Passive Wish, No Suicidal Planning, No Homicidal Ideation, No Paranoid Ideation - Sensorium Experiencing Hallucinations: No, Sensorium is Clear Type of Hallucinations: Visual: No, Auditory: No, Command: No - Level of Consciousness Level of Consciousness: Alert Orientation: Yes Intact, Yes Orientated to Time, Yes Orientated to Place, Yes Orientated to Person - Impulse Control Impulse Control: Tenuous - Insight and Judgement Insight and Judgement: Fair - Group Participation Particating in Group Activities: Yes - Medication Management Medication Management Adherence: Yes Assessment - Assessment Merits Inpatient Hospitalization: Consolidate Improvements, Pending Safe DC Plan Inpatient DSM-IV Dx: I: unspecified bipolar d/o; cannabis use d/o. II: consider borderline personality d/o. III: no active medical problem. IV: severe stressors r/t interpersonal relationships, housing, employment. V: 45 Clinical Impression: 31 y.o. single, white female with a history of episodic depression as well as routine abuse of alcohol and cannabis, who was recently [facility] the [facility] on November 23, 2016 with a new diagnosis of bipolar geovany, who is now brought back by police on 9.41 status following a five hour stand off with the [employer] team after the patient had barricaded herself in her apartment, threatening to kill herself. She has made homicidal statements to her landlady and to the landlady's children. Plan - Plan Treatment Plan: Name: VLAD ZAPIEN Birthdate: 1985 [id number] The patient appears to be improving and is assisting in discharge planning considerations. She is currently accepting a trial of quetiapine 100mg PO qhs. Continue involuntary inpatient treatment as we attempt to secure placement without the assistance of her family, per her insistence. Continued Medication Management: Start Medication Medications: Current Medications Acetaminophen (Tylenol Tab*) 650 mg PO Q4H PRN PRN Reason: PAIN or TEMP > 101 F Last Admin: 12/18/16 16:02 Dose: 650 mg Al Hydrox/Mg Hydrox/Simethicone (Maalox Plus*) 30 ml PO Q4H PRN PRN Reason: INDIGESTION Haloperidol (Haldol Tab*) 5 mg PO Q6H PRN PRN Reason: AGITATION/ANXIETY/INSOMNIA Lorazepam (Ativan Tab(*)) 1 mg PO BID PRN PRN Reason: ANXIETY/AGITATION Last Admin: 12/22/16 11:13 Dose: 1 mg Melatonin (Melatonin (Nf)) 3 mg PO BEDTIME ANGELINE PRN Reason: Protocol Last Admin: 12/21/16 20:11 Dose: 3 mg Multivitamins (Theragran Tab*) 1 tab PO DAILY [facility] Last Admin: 12/22/16 11:13 Dose: 1 tab Nicotine (Nicotine Inhaler*) 10 mg INH Q2H PRN PRN Reason: CRAVING Last Admin: 12/19/16 15:02 Dose: 10 mg Quetiapine Fumarate (Seroquel Tab*) 100 mg PO BEDTIME [facility] Last Admin: 12/21/16 21:24 Dose: 100 mg - Discharge Plan Discharge Plan: Outpatient Follow Up [facility] Lab Results - Lab Results Lab Results: 12/22/16 12/22/16 08:21 08:21 Hemoglobin A1c 5.4 Triglycerides 73 Cholesterol 207 LDL Cholesterol 123 HDL Cholesterol 69.3
[2016-12-22] MEDS: Nicotine Inhaler* 10 MG AMP INH PRN (19:53)
[2016-12-22] MEDS: CMCS: Melatonin (NF) 3 MG TAB PO SCH (21:18)
[2016-12-22] MEDS: QUEtiapine TAB* 100 MG PO SCH (21:19)
[2016-12-23] MEDS: Vitamin THERAPEUTIC TAB PO SCH (10:23)
--- NOTE | 2016-12-23 11:20 | PN ---
Subjective - Subjective Service Type: [id number] Hosp care 15 min low complexity Subjective: Vlad is calm and polite today. States her intention to appear at [facility] tomorrow in search of emergency assistance and housing. She has her car with several belongings stored within and her father has given her the location of the storage unit that is warehousing her other possessions. She does state that the quetiapine makes her somewhat tired but otherwise tolerates this well. She has no acute complaints at this time and denies SI or HI. Staff reported that she was not eating, but she denies this, stating that she missed lunch yesterday but attended all other meals and snacks. Objective - Appearance Appearance: Thin Framed Dysmorphic Features: No Hygiene: Normal Grooming: Fairly Well Kept - Behavior Psychomotor Activities: Normal Exhibits Abnormal Movement: No - Attitude and Relatedness Attitude and Relatedness: Cooperative Eye Contact: Good - Speech Quality: Unpressured Latencies: Normal Quantity: Appropriate - Mood Patient's Decription of Mood: "Okay" - Affect Observed Affect: Good Affect Consistent with: Euthymia - Thought Process Patient's Thought Process: Coherent Thought Content: No Passive Wish, No Suicidal Planning, No Homicidal Ideation, No Paranoid Ideation - Sensorium Experiencing Hallucinations: No, Sensorium is Clear Type of Hallucinations: Visual: No, Auditory: No, Command: No - Level of Consciousness Level of Consciousness: Alert Orientation: Yes Intact, Yes Orientated to Time, Yes Orientated to Place, Yes Orientated to Person - Impulse Control Impulse Control: Tenuous - Insight and Judgement Insight and Judgement: Fair - Group Participation Particating in Group Activities: No - Medication Management Medication Management Adherence: Yes Assessment - Assessment Merits Inpatient Hospitalization: Consolidate Improvements, Pending Safe DC Plan Inpatient DSM-IV Dx: I: unspecified bipolar d/o; cannabis use d/o. II: consider borderline personality d/o. III: no active medical problem. IV: severe stressors r/t interpersonal relationships, housing, employment. V: 45 Clinical Impression: 31 y.o. single, white female with a history of episodic depression as well as routine abuse of alcohol and cannabis, who was recently discharged from the [facility] on November 23, 2016 with a new diagnosis of bipolar geovany, who is now brought back by police on 9.41 status following a five hour stand off with the [employer] SWAT team after the patient had barricaded herself in her apartment, threatening to kill herself. She has made homicidal statements to her landlady and to the landlady's children. Plan - Plan Treatment Plan: Name: VLAD ZAPIEN Birthdate: 1985 [id number] The patient appears to be improving and is assisting in discharge planning considerations. She is currently accepting a trial of quetiapine 100mg PO qhs. She continues to be upset at her family, and is not allowing us to contact them or include them in the discharge planning process. Will discharge tomorrow to emergency public assistance. [facility] with [facility]. Continued Medication Management: Start Medication Medications: Current Medications Acetaminophen (Tylenol Tab*) 650 mg PO Q4H PRN PRN Reason: PAIN or TEMP > 101 F Last Admin: 12/18/16 16:02 Dose: 650 mg Al Hydrox/Mg Hydrox/Simethicone (Maalox Plus*) 30 ml PO Q4H PRN PRN Reason: INDIGESTION Haloperidol (Haldol Tab*) 5 mg PO Q6H PRN PRN Reason: AGITATION/ANXIETY/INSOMNIA Lorazepam (Ativan Tab(*)) 1 mg PO BID PRN PRN Reason: ANXIETY/AGITATION Last Admin: 12/22/16 20:35 Dose: 1 mg Melatonin (Melatonin (Nf)) 3 mg PO BEDTIME ANGELINE PRN Reason: Protocol Last Admin: 12/22/16 21:18 Dose: 3 mg Multivitamins (Theragran Tab*) 1 tab PO DAILY ANGELINE Last Admin: 12/23/16 10:23 Dose: Not Given Nicotine (Nicotine Inhaler*) 10 mg INH Q2H PRN PRN Reason: CRAVING Last Admin: 12/22/16 19:53 Dose: 10 mg Quetiapine Fumarate (Seroquel Tab*) 100 mg PO BEDTIME ANGELINE Last Admin: 12/22/16 21:19 Dose: 100 mg - Discharge Plan Discharge Plan: Outpatient Follow Up Outpatient Program: [facility]
[2016-12-23] MEDS: LORazepam TAB(*) 1 MG PO PRN (19:14)
[2016-12-23] MEDS: CMCS: Melatonin (NF) 3 MG TAB PO SCH (21:14)
[2016-12-23] MEDS: QUEtiapine TAB* 100 MG PO SCH (21:14)
[2016-12-24 07:45] VITALS: BP 105/74
[2016-12-24] MEDS: Vitamin THERAPEUTIC TAB PO SCH (09:46)
[2016-12-24] MEDS: LORazepam TAB(*) 1 MG PO PRN (11:20)
--- NOTE | 2016-12-24 15:53 | DS ---
DATE OF ADMISSION: 11/27/2016. DATE OF DISCHARGE: 12/24/2016. DISCHARGE DIAGNOSES: AXIS I: Bipolar disorder, most recent episode mixed phase, severe with psychotic features; cannabis use disorder; alcohol use disorder. AXIS II: Cluster B personality traits by history. AXIS III: None. AXIS IV: Severe, housing and primary support stressors. AXIS V: At the time of admission was 30 and at the time of discharge is 60. CONDITION AT THE TIME OF DISCHARGE: Improved. The patient is calm and cooperative. She has been safe on all checks for several weeks now and has steadfastly denied suicidal or homicidal ideations throughout her extended hospitalization. She is agreeable with medication and is tolerating it well. We have seen improvements in her insight, as well as improvement in self-care. With that having been said, the patient remains quite angry at her family and has been consistently against including them in the discharge planning process. She is currently homeless and we are in a situation where we are obligated to refer her to the [employer] for emergency funding, as well as emergency housing in the community. This is secondary to the patient's refusal to allow us to bring any of her friends or family members into the discharge planning process. I have not been able to reach out to family members to include them in her treatment because of her steadfast objections to this. With that being said, she no longer appears to be paranoid, but rather just angry and disappointed. She also reveals a stubborn and somewhat passive aggressive aspect of her personality in not allowing family members to get involved at this time. She is agreeable with outpatient treatment at [facility] and the necessary appointments have been established. We never observed her being violent towards herself or others, other than verbally at the very beginning of this hospitalization. MENTAL STATUS EXAMINATION AT THE TIME OF DISCHARGE: The patient is a petite, dark- haired, brown-eyed female who is clean and well-groomed. She makes good eye contact. Speech has a normal rate, tone and volume. It is easy to establish a rapport with her at this time. She is quite cooperative. Mood is euthymic with a full affect. Thought process is linear and goal-directed. Thought content is significant for her desire to be discharged from the hospital. She denied suicidal or homicidal ideations and has consistently done so. She denies auditory or visual hallucinations and there is no evidence of active psychotic thought process. Insight and judgment are fair given her willingness to follow-up with outpatient treatment in the community. Cognitively, she is awake and alert with what would appear to be an average intellect. DISCHARGE INSTRUCTIONS TO THE PATIENT: A. Medications: The patient is taking Quetiapine 100 mg p.o. at bedtime. B. Diet: Regular. C. Activities: As tolerated. The patient is declining the offer of continued nicotine replacement therapy at this time indicating her preference to continue smoking cigarettes for the time being. There are no laboratory or diagnostic studies pending at the time of discharge. D. Follow-up care: The patient will follow-up at the [facility] here in [place]. She has a counselor there already, but will also be seen for psychiatric services and medication management. HOSPITAL COURSE - PART A: Reason for admission: Ms. Louise is a 31-year-old, single, white female with a recent diagnosis of bipolar disorder who had just been discharged from our unit on the 23 of November, who now returns on 9.41 legal status after an altercation with her family at her home in which there was police involvement. My understanding is that initially her neighbor, who happens to be her landlord, observed her on the sidewalk scantily clad and holding a utility knife. He overheard her making suicidal and homicidal statements, although they were not necessarily directed towards him. Further collateral information was that the police were notified and around the same time members of her family showed up to try to assist her. It became clear through collateral information that the patient did not adhere with the Gabapentin medication she had been discharged on. She was observed at her home not wearing a shirt and she at one point emerged onto the roof over her porch and was screaming hostilities at the police. She had also cut through the screen of the window to the porch and she had derogatory things to say towards her family at that time also. When she was admitted, she was making racist statements against white people, refusing to interact with certain staff members. She was agitated and was placed on 9.39 involuntary legal status. The patient strongly objected to this and stated that her parents and family members were trying to make her look crazy. She appeared thin and gaunt and was deemed not able to care for herself in a less restrictive setting. HOSPITAL COURSE - PART B: Psychiatric treatment rendered: The [facility] under the care of psychiatric nurse practitioner Magui Cason. When it was clear that the patient would refuse treatment, she was transferred to the care of psychiatrist Dr. Maksim Arguelles and we placed her on a two physician consent and moved to pursue treatment over her objection. She steadfastly refused medication management, telling me frequently that it was her family who was crazy. At one point, we received word from her landlady, a woman named Francine, that Rosario had recently made homicidal threats to her landlady as well as the daniellawendy's small child. We were not able to interact much with family members given the fact that Rosario refused to place them on the release of information; however, we were able to gather information from them and they indicated that she continue to function significantly lower than her baseline. She had made several threatening and bizarre disorganized text messages to family and friends. At no point did Rosario welcome family members into the treatment planning process. Ultimately, the patient was taken to court for treatment over her objection and the hospital won that case. After the court date, she seemed to resign herself to taking medicine and we were able to negotiate treatment plan in which she took Quetiapine 100 mg p.o. at bedtime. She did appear to tolerate this well and gradually throughout the hospitalization, her agitation and paranoia decreased. Despite becoming more euthymic, she still maintained anger towards her family and accused them of being hypocrites. She did show a lapse in judgment when she gave her car keys to a male peer with a psychotic disorder. That peer later showed up at the hospital after discharge demanding to be readmitted in order to see Rosario and was ultimately sent to a state hospital facility. We were able to get Rosario's car keys back. After the fact, she did show some better insight and denies any thought of giving her car or possessions to any other patients. At this time, rather than returning to the care of her family, she is choosing to be discharged to the [facility] [employer] resources, specifically emergency fci as well as public assistance. Her long-term goals are that she will get a job and perhaps get into college. She is stating she would like to complete a graduate degree in Biological Anthropology. At this time, she is calm and cooperative and we see no psychiatric justification for further involuntary care. We do wish her the best, although I am acknowledging at this point prognostically, things remain quite uncertain given her anger towards her family. I certainly hope that this can be resolved in the interest of the patient moving forward in a healthy fashion. [id number]/[facility] #: [id number] LALITA
== END 2016-12-24 12:45 | disposition home or self-care (01) | DRG 753 ==
LOC: ED 18:20 → BSU 11-28 00:43
PROVIDERS: ADMIT Psychiatry & Neurology Psychiatry; ATTEND Psychiatry & Neurology Psychiatry
PROC: GZHZZZZ Group Psychotherapy (ICD-10-PCS; principal; 2016-11-28)
DX: F31.64 Bipolar disorder, current episode mixed, severe, with psychotic features (principal); F41.9 Anxiety disorder, unspecified; F60.3 Borderline personality disorder; Z72.89 Other problems related to lifestyle; F12.90 Cannabis use, unspecified, uncomplicated; F17.210 Nicotine dependence, cigarettes, uncomplicated; Z88.8 Allergy status to other drugs, medicaments and biological substances; Z81.8 Family history of other mental and behavioral disorders; Z81.1 Family history of alcohol abuse and dependence
CPT/HCPCS: 36415; 80053; 80061; 80307; 80320; 80329; 81003; 81015; 83036; 84443; 84702; 85025; 87086; 90853; 99222; 99231; 99232; 99238; A9270-GY; G0480; J1630; J2060

== ENCOUNTER 2017-06-03 10:38 | Emergency (ER) | payer OTHER ==
[2017-06-03] MEDS ORDERED: Lidocaine 2% VISCOUS* 15 ML UDC PO ONE (11:03)
[2017-06-03] MEDS ORDERED: Al Hydrox/Mg Hydrox/Simet LIQ* 30 ML UDC PO ONE (11:03)
--- NOTE | 2017-06-03 11:12 | ED ---
Back Pain - HPI Summary HPI Summary: 31 female presents to ED with complaints of pain between her shoulder blades that began this morning. Patient states she has had it before and it was a night after drinking. States she drank last night and woke up again with this pain. States "it feels like an organ not muscle". Denies chest pain but feels the pain radiates into the front. Describes the pain to be aching. Tried taking ibuprofen this morning without relief. Has not tried anything else. States last episode lasted about 3 days intermittently, and was much worse than today's episode. States it spontaneously resolved. FHx significant for HTN and DM. No known PMHx and no medications other than vitamins. Did feel nauseous this morning however, does not currently. Denies vomiting, abdominal pain, and chest pain. No SOB and no trouble breathing. No fever/chills. Not on OCP. No other complaints. No high cholesterol or cardiac disease. This has happened 3 times before. States movement does not make it worse, but massage does make it feel somewhat better. Pain does not worsen with deep breaths or coughing. Alcohol use but no other drug use. - History of Current Complaint Chief Complaint: EDBackInjuryPain Stated Complaint: BACK PAIN Time Seen by Provider: 06/03/17 10:46 Hx Obtained From: Patient Onset/Duration: Sudden Onset, Lasting Hours, Still Present Onset/Duration: Started Hours Ago, Still Present Timing: Constant Back Pain Location: Is Discrete @ - between shoulder blades Severity Initially: Moderate Severity Currently: Moderate Pain Intensity: 8 Pain Scale Used: 0-10 Numeric Character: Aching Aggravating Symptom(s): Other - unknown Alleviating Symptom(s): Other - massage+/- Associated Signs And Symptoms: Negative: Swelling, Redness, Weakness, Numbness, Abdominal Pain, Bladder Incontinence, Bowel Incontinence, Pain with Weight Bearing - Risk Factors AAA Risk Factors: Negative TAD Risk Factors: Negative Cauda Equina Risk Factors: Negative Epidural Abscess Risk Factors: Negative - Allergies/Home Medications Allergies/Adverse Reactions: Allergies Allergy/AdvReac Type Severity Reaction Status Date / Time MS Tramadol [Tramadol] Allergy Rash Verified 11/28/16 13:01 tramadol Allergy Rash Verified 06/03/17 10:44 PMH/Surg Hx/FS Hx/Imm Hx Endocrine/Hematology History: Denies: Hx Bone Marrow Disease, Hx Diabetes, Hx Thyroid Disease, Hx Anemia Cardiovascular History: Denies: Hx Pacemaker/ICD Respiratory History: Denies: Hx Asthma, Hx Sleep Apnea GI History: Denies: Hx Crohn's Disease, Hx Gastroesophageal Reflux Disease, Hx Irritable Bowel History: Denies: Hx Kidney Infection, Hx Kidney Stones Musculoskeletal History: Denies: Hx Arthritis, Hx Bursitis, Hx Tendonitis Sensory History: Denies: Hx Contacts or Glasses, Hx Glaucoma, Hx Hearing Aid Opthamlomology History: Denies: Hx Contacts or Glasses, Hx Glaucoma Neurological History: Denies: Hx Headaches, Hx Migraine, Hx Seizures Psychiatric History: Reports: Hx Eating Disorder - Pt restricts food, Hx Depression, Hx Inpatient Treatment, Hx Community Mental Health Tx, Hx Bipolar Disorder, Hx Substance Abuse Denies: Hx Anxiety, Hx of Violent Episodes Against Others - Surgical History Surgery Procedure, Year, and Place: [place] tooth extraction Hx Anesthesia Reactions: No - Immunization History Immunizations Up to Date: Yes Infectious Disease History: No Infectious Disease History: Denies: Traveled Outside the [place] in Last 30 Days - Family History Known Family History: Positive: Other - Alcoholism - Social History Alcohol Use: Occasionally Alcohol Amount: 'Binge drinks" Hx Substance Use: Yes Substance Use Type: Reports: Marijuana Substance Use Comment - Amount & Last Used: unknown pt not cooperative at this time. Hx Tobacco Use: No Smoking Status (MU): Never Smoked Tobacco Amount Used/How Often: Pt has not used any tobacco products in last 30 days Review of Systems Constitutional: Negative Cardiovascular: Negative Respiratory: Negative Positive: Nausea - resolved Positive: Arthralgia, Myalgia - in between shoulder blades Skin: Negative Neurological: Negative All Other Systems Reviewed And Are Negative: Yes Physical Exam Triage Information Reviewed: Yes Vital Signs On Initial Exam: Initial Vitals Temp Pulse Resp BP Pulse Ox 98.1 F 107 17 129/76 100 06/03/17 10:39 06/03/17 10:39 06/03/17 10:39 06/03/17 10:39 06/03/17 10:39 BP normal and taken upper extremity and lower without discrepancy Vital Signs Reviewed: Yes Appearance: Positive: Well-Appearing, No Pain Distress, Well-Nourished Skin: Positive: Warm, Skin Color Reflects Adequate Perfusion, Dry. Negative: Cold, Numb, Cyanosis @, Jaundiced, Pale, Erythema @ Head/Face: Positive: Normal Head/Face Inspection Eyes: Positive: Conjunctiva Clear ENT: Positive: Pharynx normal Neck: Positive: Supple, Nontender Respiratory/Lung Sounds: Positive: Clear to Auscultation, Breath Sounds Present. Negative: Rales, Rhonchi, Stridor, Tracheal Deviation, Wheezes, Unable to speak in full sentences Cardiovascular: Positive: Normal, RRR, Pulses are Symmetrical in both Upper and Lower Extremities, Other - no bruits. Negative: Murmur, Rub Abdomen Description: Positive: Nontender, Soft Bowel Sounds: Positive: Present Musculoskeletal: Positive: Normal, Strength/ROM Intact, Pain @ - on papation of paraspinal and mid spine area of T7-T4, Other - no crepitus step off or obvious deformity noted. no other signs of trauma. no edema or ecchymosis. Negative: Limited @, Interruption @, Edema Left, Edema Right Neurological: Positive: Normal, Sensory/Motor Intact, Alert, Oriented to Person Place, Time, CN Intact II-III, Reflexes Intact, NV Bundle Intact Distally, Normal Gait Diagnostics - Vital Signs Vital Signs Temp Pulse Resp BP Pulse Ox 06/03/17 10:41 97.4 F 91 18 118/80 96 06/03/17 10:39 98.1 F 107 17 129/76 100 - Laboratory Result Diagrams: 06/03/17 11:26 06/03/17 11:26 Lab Statement: Any lab studies that have been ordered have been reviewed, and results considered in the medical decision making process. - Radiology chest Xray Interpretation: No Acute Changes - negative chest Radiology Interpretation Completed By: Radiologist thoracic Xray Interpretation: No Acute Changes - normal exam Radiology Interpretation Completed By: Radiologist Re-Evaluation - Re-Evaluation First Eval Re-Evaluation Time: 11:40 Change: Improved - had singificant relief and pain subsided after GI cocktail Back Pain Course/Dx - Course Course Of Treatment: attempted a GI cocktail incase of GI etiology due to alcohol appearing to be a trigger. Patient had significant relief and pain subsided to /. Chest and thoracic xray obtained and both negative. normal vitals. BP checked both upper and lower extremities without change. Basic labs and lipase obtained, unremarkable. appears patient is suffering from an alcohol induced gastritis/GERD exacerbation into esophagus. Encouraged use of antacid especially when drinking alcohol and educated on other measures to avoid exacerbations/episodes. Patient agrees and understands. Spoke with Dr Blackburn about case as well. No risk factors to suggest other etiology. No other emergent concerns at this time. Follow up PCP. Aware of worsening signs and symptoms to watch out for. - Diagnoses Differential Diagnosis/HQI/PQRI: Positive: Strain, Sprain, Other - TAA, GERD, esophagitis, gastritis, esophagel spasm Provider Diagnoses: GERD (gastroesophageal reflux disease) - Provider Notifications Discussed Care Of Patient With: Dr Blackburn Time Discussed With Above Provider: 11:05 Discharge - Discharge Plan Condition: Good Disposition: HOME Prescriptions: RX: Ranitidine TAB (NF) [Zantac TAB (NF)] 150 mg PO BID #20 tab Patient Education Materials: Gastroesophageal Reflux Disease in Children (ED), Diet for Stomach Ulcers and Gastritis (ED), Esophageal Spasm (ED) Referrals: Gwen Valenzuela MD [Primary Care Provider] - Additional Instructions: Recommend taking antacids for the next couple of days/weeks such as tums sold over the counter and prescribed medication. Refrain from use of alcohol and NSAIDs (ibuprofen) as this will exacerbate symptoms. Also recommend spicy, acidic, and citric foods. Sit up after eating for at least 30 minutes. Any new or worsening symptoms please seek medical attention promptly, and return as discussed. Follow up with PCP for further work up and re-check.
--- NOTE | 2017-06-03 11:25 | RAD ---
INDICATION: Chest pain COMPARISON: None TECHNIQUE: PA and lateral dual-energy views were obtained. FINDINGS: Bones/Soft Tissues: There are no acute bony findings. Cardiomediastinal: The cardiomediastinal silhouette is normal. Lungs: There are no infiltrates. Pleura: There are no pleural effusions. Other: None IMPRESSION: NORMAL CHEST.
--- NOTE | 2017-06-03 11:26 | RAD ---
INDICATION: Thoracic pain COMPARISON: None TECHNIQUE: Routine 2 view imaging was performed FINDINGS: Bones: There are no acute bony findings. There are no significant osteoarthritic findings. Alignment: Normal Disc spaces: The disc spaces are well-maintained Soft tissues: There are no soft tissue abnormalities. IMPRESSION: NEGATIVE EXAMINATION.
[2017-06-03 11:45] LABS: ABS Basophils 0.1 10^3/ul (0-0.2); ABS Eosinophils 0.1 10^3/ul (0-0.6); ABS Lymphocytes 2.3 10^3/ul (1.0-4.8); ABS Monocytes 0.6 10^3/ul (0-0.8); ABS Nucleated RBC 0 10^3/ul; Eosinophil % 0.9 % (0-6); Hematocrit 36 % (35-47); Hemoglobin 12.5 g/dl (12.0-16.0); Lymphocyte % 28.9 % (25-47); Mean Corpuscular HGB Conc 34 g/dl (31-36); Mean Corpuscular Hemoglobin 30 pg (27-31); Mean Corpuscular Volume 88 fL (80-97); Mean Platelet Volume 7 um3 (7.4-10.4); Nucleated Red Blood Cells % 0.1; Platelet Count 438 10^3/ul (150-450); Red Blood Count 4.15 10^6/ul (4.0-5.4); Red Cell Distribution Width 13 % (10.5-15); White Blood Count 8.1 10^3/ul (3.5-10.8)
[2017-06-03 11:56] LABS: EGFR Non-African American 106.9 (>60)
[2017-06-03] MEDS ORDERED: Famotidine TAB* 20 MG PO ONE (12:05)
[2017-06-03 12:22] VITALS: BP 123/79
== END 2017-06-03 12:21 | disposition home or self-care (01) ==
LOC: ED 10:38
DX: K21.9 Gastro-esophageal reflux disease without esophagitis (principal)
CPT/HCPCS: 36415; 71046; 72070; 80053; 83690; 85025; 99282; A9270-GY